=== PATIENT | male | born 1955 | race Caucasian/White ===

== ENCOUNTER 2024-06-17 07:41 | Inpatient (IN) ==
--- NOTE | 2024-03-31 12:29 | PAT Medication Instructions ---
Medication Instructions Date of Service March 31, 2024 Home Medications aspirin 81 mg capsule 81 mg PO QAM atenolol 100 mg tablet 100 mg PO QAM atorvastatin 20 mg tablet 20 mg PO QAM diltiazem HCl 180 mg capsule,extended release 24 hr 180 mg PO QAM fexofenadine 180 mg tablet 180 mg PO QAM lisinopril 20 mg-hydrochlorothiazide 12.5 mg tablet 2 tab PO QAM magnesium oxide 400 mg PO DAILY One-A-Day Men's 50 Plus 1 tab PO QAM ASK your prescriber and surgeon aspirin 81 mg capsule 81 mg PO QAM DO NOT take the morning of surgery fexofenadine 180 mg tablet 180 mg PO QAM lisinopril 20 mg-hydrochlorothiazide 12.5 mg tablet 2 tab PO QAM magnesium oxide 400 mg PO DAILY One-A-Day Men's 50 Plus 1 tab PO QAM Take morning of surgery With a small sip of water, OTHERWISE NOTHING TO EAT OR DRINK AFTER MIDNIGHT: atenolol 100 mg tablet 100 mg PO QAM atorvastatin 20 mg tablet 20 mg PO QAM diltiazem HCl 180 mg capsule,extended release 24 hr 180 mg PO QAM Other Notes If you have any questions please call us at [phone] or [phone] or [phone] or [phone]
--- NOTE | 2024-04-09 11:03 | Anesthesiology Consultation ---
Date of Service April 09, 2024 Assessment & Plan (1) Encounter for pre-operative examination: Chart Review Chart Review: Acceptable Risk for Surgery (pending updated preop ECHO and surgeon ordered PCP clearance ) and Patient seen in Pre Admission Testing - Awaiting PCP phone note response from 04/09/24 regarding scheduling preop ECHO for new onset murmur - Awaiting PCP clearance 04/28/24 ([facility]- Dr. Younger) Per PAT appt on 04/09/24, no recent illness/disease exposures, illness related symptoms, or recent illness/disease positive tests. Will leave to surgeon's discretion if preop Covid testing needed Teaching & Discussion Pre-Anesthesia Teaching/Discussion Notes: Instructed NPO after midnight before surgery,except medications with 15 cc of water. Medication instructions provided according to the PAT guidelines. History Surgery Operation Date: 05/08/24 07:45 Proposed Procedures p L3-L5 Decompression and Fusion, Spinal Cord Monitoring - Jaylan Campos, Height/Weight Height: 6 ft 3 in Weight: 114 kg Allergies Allergy/AdvReac Type Severity Reaction Status Date / Time No Known Allergies Allergy Verified 03/30/24 08:27 Medications Home Medications Medication Instructions Recorded Confirmed Last Taken aspirin 81 mg capsule 81 mg PO QAM 03/30/24 03/30/24 Unknown atenolol 100 mg tablet 100 mg PO QAM 03/30/24 03/30/24 Unknown atorvastatin 20 mg tablet 20 mg PO QAM 03/30/24 03/30/24 Unknown diltiazem HCl 180 mg 180 mg PO QAM 03/30/24 03/30/24 Unknown capsule,extended release 24 hr fexofenadine 180 mg tablet 180 mg PO QA 03/30/24 03/30/24 Unknown lisinopril 20 2 tab PO QAM 03/30/24 03/30/24 Unknown mg-hydrochlorothiazide 12.5 mg tablet magnesium oxide 400 mg PO DAILY 03/30/24 03/30/24 Unknown multivitamin with minerals-folic 1 tab PO QAM 03/30/24 03/30/24 Unknown acid 400 mcg-lycopene 370 mcg tablet (One-A-Day Men's 50 Plus) Past Medical History Medical History (Updated 04/09/24 @ 11:13 by Mily Camacho PA-C) GERD (gastroesophageal reflux disease) well controlled and stable Herniated lumbar intervertebral disc HLD (hyperlipidemia) Hypertension Post-nasal drip chronic Seasonal allergies daily allergy med Exercise / Class Metabolic Activity II 4-5 Yardwork/Stairs/Walk up hill (one flight of stairs - no chest pain or SOB ) Past Surgical History Surgical History History of foot surgery Left foot surgery for plantar fasciitis History of open reduction and internal fixation (ORIF) procedure (2004) right leg with removal of hardware Hx of bilateral cataract extraction Hx of colonoscopy Hx of tonsillectomy S/P epidural steroid injection x7 in past Past Anesthesia History No Hx of Anesthesia Complications and No Family Hx of Anesthesia Complications History of PONV No Hx of PONV and No Hx of Motion Sickness Social History Smoking Status: Former smoker Do You Dip or Chew Tobacco: No Smoking End Date: 1979 Hx Alcohol Use: Yes Alcohol type: beer alcohol intake frequency: a few times a week Hx Substance Use: No substance use type: does not use Review of Systems - Sleeps alone- snoring hx unknown Patient denies chest pain, shortness of breath, dyspnea on exertion, cough, wheezing, palpitations. No hx of seizures, stroke, OR. No hx of blood clots or blood transfusions Physical Exam Vital Signs VITALS BP 116/76 P 65 TEMP 98.0 SP02 98% RESP 16 Constitutional no acute distress ENMT Mouth: no TMJ clicking Thyromental Distance: > or= 3.5 Finger Breadths (4.0) Mallampati Class: III Missing molars Neck + facial hair (advised to shave/trim); neck extension not limited Respiratory normal respiratory effort; no respiratory distress Auscultation: lungs clear to auscultation bilaterally; no wheezes Cardiovascular Rate/Rhythm: regular rate and regular rhythm Heart Sounds: + murmur (II-III/ murmur) Vessels: no carotid bruit New onset murmur- discussed with Dr. Rodríguez- recommend preop ECHO prior to surgery Musculoskeletal Spine: no pain with cervical ROM Extremities: extremities normal to inspection Psychiatric Orientation: alert Lab Results Anesthesia Preop Results Results Anesthesia Widget: WBC 8.63 K/ul (4.8-10.8) 04/09/24 Hgb 13.6 g/dl (14.0-18.0) L 04/09/24 Hct 39.4 % (42.0-52.0) L 04/09/24 Plt 187 K/uL (130-400) 04/09/24 Na 137 mmol/L (136-145) 04/09/24 K 3.6 mmol/L (3.5-5.1) 04/09/24 Cl 102 mmol/L (98-107) 04/09/24 CO2 30 mmol/L (21-32) 04/09/24 BUN 18 mg/dl (6-23) 04/09/24 Creat 0.89 mg/dl (0.6-1.4) 04/09/24 Glucose Level 62 mg/dl (70-99(Fasting)) L 04/09/24 PT 10.3 Seconds (9.0-12.0) 04/09/24 PTT 28 Seconds (21-31) 04/09/24 INR 0.9 (0.9-1.1) 04/09/24 Urine Color Yellow 04/09/24 Urine Appearance Clear (Clear) 04/09/24 Urine pH 5.5 (4.5-7.5) 04/09/24 Urine Specific [place] 1.012 (1.000-1.030) 04/09/24 Urine Protein Negative (Negative) 04/09/24 Urine Glucose (UA) Negative (Negative) 04/09/24 Urine Ketones Negative (Negative) 04/09/24 Urine Blood Negative (Negative) 04/09/24 Urine Nitrite Negative (Negative) 04/09/24 Urine Bilirubin Negative (Negative) 04/09/24 Urine Urobilinogen Negative (Negative) 04/09/24 Urine Leukocyte Esterase Negative (Negative) 04/09/24 Blood Type O Positive 04/09/24 Antibody Screen NEGATIVE 04/09/24 Testing Electrocardiogram Date: 04/09/24 SR with 1st degree AVB at 63bpm Otherwise normal EKG per cardio Chest X-Ray Date: 04/09/24 Findings: + NAD
[2024-06-17 08:12] LABS: Basophils # (auto) 0.06 K/uL (0.00-0.20); Basophils % (auto) 0.5 %; Eosinophils # (auto) 0.13 K/uL (0.00-0.50); Eosinophils % (auto) 1.1 %; Hematocrit (blood only) 42.2 % (42.0-52.0); Hemoglobin 14.8 g/dl (14.0-18.0); Immature Granulocytes # (auto) 0.03 K/uL (0.01-0.20); Immature Granulocytes % (auto) 0.2 %; Lymphocytes # (auto) 2.01 K/uL (1.20-3.40); Lymphocytes % (auto) 16.7 %; Mean Corpuscular Hemoglobin 31.4 pg (25.0-34.0); Mean Corpuscular Hgb Conc 35.1 g/dL (32.0-36.0); Mean Corpuscular Volume 89.6 fL (80.0-100.0); Mean Platelet Volume 9.4 fL (9.4-12.4); Monocytes % (auto) 7.5 %; Neutrophils # (auto) 8.89 K/uL (1.40-6.50); Platelet Count 192 K/uL (130-400); RDW Coefficient of Variation 12.5 % (11.5-14.5); RDW Standard Deviation 41.4 fL (36.4-46.3); Red Blood Count 4.71 M/uL (4.70-6.10); White Blood Count 12.02 K/ul (4.8-10.8)
[2024-06-17] MEDS: LR 15ML/HR IV SCH (08:30)
[2024-06-17] MEDS: LR 60ML/HR IV SCH (08:30)
[2024-06-17] MEDS: CeleBREX 200 MG CAP PO SCH (08:31)
[2024-06-17] MEDS: ACETAMINOPHEN 500 MG TAB PO SCH (08:31)
[2024-06-17] MEDS: GABAPENTIN 300 MG CAP PO SCH (08:31)
--- NOTE | 2024-06-17 08:58 | History & Physical Bridge Note ---
Date of Service June 17, 2024 History & Physical Bridge Note I have examined the patient, reviewed the History & Physical and in the interval since the performance of the History & Physical I have noted the following changes of clinical significance: no changes noted
--- NOTE | 2024-06-17 08:59 | History & Physical Report ---
Date of Service June 17, 2024 Assessment & Plan (1) Multilevel lumbosacral spondylosis with radiculopathy: Plan: L3-L5 decompression and fusion History of Present Illness Chief Complaint: Back and leg pain Primary Care Provider: Dayna Martinez DPM This is a 68-year-old male presents with chronic persistent back and leg pain after failing course of nonoperative care is here for surgical invention. Allergies Allergy/AdvReac Type Severity Reaction Status Date / Time No Known Allergies Allergy Verified 06/17/24 08:11 Home Medications Medication Instructions Recorded Confirmed Type aspirin 81 mg capsule 81 mg PO QA 03/30/24 06/17/24 History atenolol 100 mg tablet 100 mg PO QAM 03/30/24 06/17/24 History atorvastatin 20 mg tablet 20 mg PO QA 03/30/24 06/17/24 History diltiazem HCl 180 mg 180 mg PO QAM 03/30/24 06/17/24 History capsule,extended release 24 hr fexofenadine 180 mg tablet 180 mg PO QA 03/30/24 06/17/24 History lisinopril 20 2 tab PO QAM 03/30/24 06/17/24 History mg-hydrochlorothiazide 12.5 mg tablet multivitamin with minerals-folic 1 tab PO QAM 03/30/24 06/17/24 History acid 400 mcg-lycopene 370 mcg tablet (One-A-Day Men's 50 Plus) hydroxyzine HCl 25 mg tablet 25 mg PO TID PRN Anxiety 05/21/24 06/17/24 History Past Med/Surg History Problem List (Updated 06/17/24 @ 08:58 by Jaylan Campos DO) Multilevel lumbosacral spondylosis with radiculopathy Medical History (Updated 06/17/24 @ 08:58 by Jaylan Campos DO) Ascending aorta dilatation 4.2cm per 05/2024 chest CTA COPD (chronic obstructive pulmonary disease) Per records Aortic stenosis Moderate per 04/2024 ECHO Bicuspid aortic valve GERD (gastroesophageal reflux disease) well controlled and stable Post-nasal drip chronic Seasonal allergies daily allergy med Herniated lumbar intervertebral disc HLD (hyperlipidemia) Hypertension Surgical History History of foot surgery Left foot surgery for plantar fasciitis S/P epidural steroid injection x7 in past Hx of tonsillectomy Hx of colonoscopy Hx of bilateral cataract extraction History of open reduction and internal fixation (ORIF) procedure (2004) right leg with removal of hardware Social History Smoking Status: Former smoker Smoking End Date: 40 years ago; Second Hand Exposure: No; Do You Dip or Chew Tobacco: No; Tobacco Cessation Education Requested by Patient: No Hx Alcohol Use: Yes Alcohol type: beer Hx Substance Use: No Preferred Language: Yakut Communication Ability: Effective Nutrition Consultant Required: No Beliefs That Will Affect Care: None Current Living Situation: Spouse Other Information That Helps Us Care for You: No Feels Safe at Home: Yes Safety Concerns: Feels Safe At This Time Assistive Devices: None Physical Exam Physical Exam: Patient is alert and oriented Heart regular rhythm Lungs clear Results & Data Results & Data Vital Signs (Past 12 Hours) Vital Signs Temp Pulse Resp BP Pulse Ox O2 Del Method 06/17/24 08:14 36.8 C 70 20 124/94 98 Room Air
[2024-06-17] MEDS ORDERED: LIDOCAINE 2% 2 ML VIAL/AMP(20MG/ML) INFIL ONE (09:09)
[2024-06-17] MEDS ORDERED: ONDANSETRON INJ 2 MG/ML 2 ML VIAL ONE (09:09)
[2024-06-17] MEDS ORDERED: MIDAZOLAM HCL 1 MG/ML 2ML VIAL ONE (09:09)
[2024-06-17] MEDS ORDERED: PROPOFOL IV EMULSION 10 MG/ML 20 ML VIAL IV ONE (09:09)
[2024-06-17] MEDS ORDERED: DEXAMETHASONE SOD INJ 4 MG/ML VIAL ONE (09:09)
[2024-06-17] MEDS ORDERED: ROCURONIUM BROMIDE 10 MG/ML 5 ML VIAL IV ONE ×2 (09:09→09:47)
[2024-06-17] MEDS ORDERED: fentaNYL citrate PF 100 MCG/2 ML VIAL ONE ×2 (09:09→11:45)
[2024-06-17] MEDS ORDERED: PROMETHAZINE HCL 6.25 MG in SODIUM CHLORIDE 0.9% 50 ML IV PRN (09:24)
[2024-06-17] MEDS ORDERED: ONDANSETRON INJ 2 MG/ML 2 ML VIAL IV PRN ×2 (09:24→13:33)
[2024-06-17] MEDS ORDERED: ATROPINE SULFATE 0.1 MG/ML 10ML SYR IV PRN (09:24)
[2024-06-17] MEDS ORDERED: LABETALOL HCL IV 5 MG/ML 20ML IV PRN (09:24)
[2024-06-17] MEDS: ceFAZolin 2000MG 2,000 MG/15 ML SYR IV SCH ×2 (09:30→18:15)
[2024-06-17] MEDS ORDERED: ETOMIDATE 2 MG/ML 20 ML VIAL IV ONE (09:34)
[2024-06-17] MEDS: ceFAZolin 330 MG/ML 1 GM VIAL ONE (10:20)
[2024-06-17] MEDS: BUPIVACAINE/EPINEPHRINE 0.25% 1:200,000 30 ML VIAL ONE (10:20)
[2024-06-17] MEDS ORDERED: PHENYLEPHRINE 100MCG/ML 5ML SYR ONE (10:31)
[2024-06-17] MEDS ORDERED: ePHEDrine sulfate 50 MG/5 ML SYR ONE (11:22)
[2024-06-17] MEDS ORDERED: SUGAMMADEX SODIUM 200 MG/2 ML VIAL IV ONE (11:38)
[2024-06-17] MEDS: FLOSEAL HEMOSTATIC MATRIX 10ML TOP ONE (11:39)
--- NOTE | 2024-06-17 11:50 | Operative Report ---
Post Operative Report Pre & Post Diagnosis Operation Date: 06/17/24 09:05 Pre-Op Diagnosis: #1 lumbar spondylosis with radiculopathy #2 lumbar spinal stenosis Post-Op Diagnosis: same I identified the patient and participated in the time-out.: Yes Procedure Operation Date: 06/17/24 09:05 Actual Procedures #1 lumbar decompression with bilateral medial facetectomies and foraminotomies L2-L3, L3-L4 and L4-5. #2 posterior spinal fusion L3-L5. #3 placement posterior instrumentation L3-L5 using camber. #4 interbody fusion L3-L4 L4-5 by #5 placement Spira 15 x 26 mm x 2 at L3-L4 and 14 x 26 mm x 2 at L4-L5. #6 placement locally harvested morselized graft posterior gutters. #7 placement fuse collagen sponge combined with Koros in the posterior lateral gutters and os design bone graft and interbody space. #8 application of versa wrap of the exposed dura. Surgeon Jaylan Campos, DO Bus Monitor Sydney Mendez Estimated Blood Loss 800 Findings See Below Patient is 6 foot 2 weighing over 110 kg with a BMI in excess of 31. Patient's body habitus did contribute to significant technical difficulty with positioning exposure and the procedure itself. This at least 50% postoperative time. Specimens None Indications This is a 68-year-old male presents above-mentioned diagnosis of failed course of nonoperative care is here for surgical invention. Description of Procedure Patient was met with identified informed consent team. Patient was then taken to the operative suite underwent the patient placed in a prone position on the Matthew table on top of the Florentino frame. All bony prominences well-padded eyes inspected to ensure no external pressure placed upon them. This point the lumbar spine was prepped and draped in a sterile fashion. Sharp dissection with the assistance of Bovie cautery was performed down to and exposing the lamina and transverse processes of L3-L4-L5 bilaterally. From caudal to cephalad fashion complete laminectomy of L4 was performed including bilateral male facetectomies and foraminotomies addressing severe neural compression. Then proceeded to perform a complete laminectomy of L3 with bilateral medial facetectomies and foraminotomies again addressing severe subarticular and foraminal compression. Lastly partial laminectomy L2 with bilateral medial facetectomies to address all subarticular compression. Pedicle screws were then placed at L3 L4-5 bilaterally with assistance of fluoroscopy and appropriate size marina placed. By way of transforaminal approach on the right a discectomy of L4-5 was performed. Endplates with then curetted subcortical bleeding bone and a 14 x 26 mm spiral cage filled with os design bone graft tapped position. Then proceeded to the left transforaminal region at L4-5. Again discectomy performed. Endplates guided to subcortical bleeding bone and a second 14 x 26 mm Spira cage filled with os design bone graft tapped position. Then proceeded L3-L4 bilateral transforaminal protocol left discectomy was performed. Endplates guided to subcortical being bone and a 15 x 26 mm spiral cage filled with os design bone graft tapped in position. Then proceeded to the right transforaminal region at L4-5. Again discectomy performed. Endplates guided to subcortical bleeding bone and a second 15 x 26 mm spiral cage filled with os design bone graft apposition. Rods were then compressed locked in final position bilaterally. The transverse processes of L3 L4-5 burred to subcortical bleeding bone. Infuse collagen sponge combined with Koros and local autograft placed in posterior gutters. Versa wrap placed over the exposed dura. 15 round SERGIO drain inserted. The incision was then closed with 1 Vicryl the fascia 2-0 Vicryl subcutaneously and 4 Monocryl for final skin closure. Steri-Strips and sterile dressing placed. Patient waken taken to PACU stable condition. Please note spinal cord monitoring was utilized at the procedure no changes noted. Sydney Mendez was present at the entire surgery and while the patient positioning complex portion of the surgery and final skin closure. I attest to the content of the Intraoperative Record and any orders documented therein. Any exceptions are noted below.
--- NOTE | 2024-06-17 12:00 | Fluoroscopy Report ---
FL lumbar spine 2-3V CLINICAL HISTORY: LE-L5 DECOMPRESSION AND FUSION COMPARISON STUDY: None pertinent FLUOROSCOPY TIME: 17.9 seconds FLUOROSCOPY IMAGES: 2 EXPOSURE DOSE: 15.61 mGy FINDINGS: Fluoroscopic guidance provided for lumbar fusion IMPRESSION: Please refer to the procedure report for analysis real-time fluoroscopic observation ACT 112: Negative or not required by law. Electronically signed by: Nu Calvillo M.D. 06/17/2024 11:59 AM
[2024-06-17] MEDS: HYDROmorphone INJ 1 MG/ML SYRINGE IV PRN ×2 (12:26→13:40)
[2024-06-17] MEDS ORDERED: HYDROmorphone INJ 0.5 MG/0.5 ML SYR IV PRN (13:33)
[2024-06-17] MEDS ORDERED: LORazepam 0.5 MG TAB PO PRN (13:33)
[2024-06-17] MEDS ORDERED: diphenhydrAMINE Capsule 25 MG CAP PO PRN (13:33)
[2024-06-17] MEDS ORDERED: LORazepam 2 MG/1 ML VIAL IV PRN (13:33)
[2024-06-17] MEDS ORDERED: MAGNESIUM HYDROXIDE SUSP 30 ML UDC PO PRN (13:33)
[2024-06-17] MEDS ORDERED: traMADol HCL 50 MG TABLET PO PRN (13:33)
[2024-06-17] MEDS ORDERED: SOD PHOSPHATE/SOD BIPHOSPHATE ENEMA 132 ML BTL PR PRN (13:33)
[2024-06-17] MEDS ORDERED: DO NOT ADMINISTER FLU VACCINE PRN (13:33)
[2024-06-17] MEDS ORDERED: ACETAMINOPHEN 1,000 MG/100 ML VIAL IV PRN (13:33)
[2024-06-17] MEDS ORDERED: FAMOTIDINE 20 MG TAB PO PRN (13:33)
[2024-06-17] MEDS ORDERED: ONDANSETRON 4 MG OD TAB PO PRN (13:33)
[2024-06-17] MEDS ORDERED: hydrOXYzine HCl 25 MG TAB PO PRN ×2 (13:33)
[2024-06-17] MEDS ORDERED: METOCLOPRAMIDE HCL INJ 5 MG/ML 2 ML VIAL IV PRN (13:33)
[2024-06-17] MEDS ORDERED: NALOXONE HCL 0.4 MG/1 ML VIAL/CARP IV PRN (13:33)
[2024-06-17] MEDS ORDERED: bisacodyL 10 MG SUPP PR PRN (13:33)
[2024-06-17] MEDS ORDERED: PROMETHAZINE 12.5 MG/50.5 ML BAG IV PRN (13:33)
[2024-06-17] MEDS ORDERED: DO NOT ADMINISTER PNEUMOCOCCAL VACCINE PRN (13:33)
[2024-06-17] MEDS: HYDROmorphone INJ 1 MG/ML SYRINGE ONE (13:42)
--- NOTE | 2024-06-17 14:32 | Anesthesiology Progress Note ---
Date of Service June 17, 2024 Anesthesia Post Procedure Vital Signs Vital Signs: Temp Pulse Pulse Resp BP Pulse Ox O2 Del Method 06/17/24 14:13 36.5 C 67 16 116/76 97 Room Air 06/17/24 14:00 61 20 119/78 94 Room Air 06/17/24 13:45 60 15 120/63 93 Room Air 06/17/24 13:30 61 15 117/76 96 Room Air 06/17/24 13:15 61 15 129/82 100 Nasal Cannula 06/17/24 13:05 57 L 17 128/79 100 Nasal Cannula 06/17/24 12:55 36.4 C L 61 17 112/92 96 Nasal Cannula 06/17/24 12:45 59 L 12 129/74 96 Nasal Cannula 06/17/24 12:35 61 13 126/81 94 Nasal Cannula 06/17/24 12:25 64 12 116/75 96 Oxymask 06/17/24 12:15 68 12 134/75 99 Oxymask 06/17/24 12:07 36.2 C L 70 16 125/78 95 Oxymask 06/17/24 08:14 36.8 C 70 20 124/94 98 Room Air O2 Flow Rate 06/17/24 14:13 06/17/24 14:00 06/17/24 13:45 06/17/24 13:30 06/17/24 13:15 2 06/17/24 13:05 2 06/17/24 12:55 2 06/17/24 12:45 2 06/17/24 12:35 2 06/17/24 12:25 2 06/17/24 12:15 9 06/17/24 12:07 9 06/17/24 08:14 Pain Intensity Right Leg: Pain Intensity: 5 Back: Pain Intensity: 3 Transfer of Care Handoff Completed per policy Notes Mental Status: alert / awake / arousable Patient Amnestic to Procedure: Yes Nausea / Vomiting: adequately controlled Pain: adequately controlled Airway Patency, RR, SpO2: stable & adequate BP & HR: stable & adequate Hydration State: stable & adequate Anesthetic Complications: no major complications apparent
--- NOTE | 2024-06-17 14:54 | Consultation ---
Date of Consultation June 17, 2024 Assessment & Plan (1) S/P spinal surgery: (2) Multilevel lumbosacral spondylosis with radiculopathy: Post op day# 0 S/P L3-L5 decompression and fusion by Dr Beth BREEN#[phone] Pain management per ortho Wound management per ortho PT/OT as appropriate DVT prophylaxis per ortho Incentive spirometry Monitor H&H for acute blood loss anemia; pre-op Hgb: 14 (3) Hypertension: Continue atenolol, diltiazem Hold lisinopril, HCTZ and reassess tomorrow (4) HLD (hyperlipidemia): Continue home atorvastatin (5) COPD (chronic obstructive pulmonary disease): No signs exacerbation Levalbuterol as needed (6) GERD (gastroesophageal reflux disease): Continue PPI (7) Bicuspid aortic valve: (8) Aortic stenosis: (9) Ascending aorta dilatation: Per outpatient review: 04/23/2024 Echo: EF: 60-64%. LV wall thickness is mildly increased. Aortic valve is possibly bicuspid with partial fusion of the right and non coronary aortic valve cusp. The aortic valve is moderately calcified. Moderate aortic valve stenosis is present. Trace aortic regurgitation is present. The aortic root is borderline enlarged, 3.9 cm. The ascending aorta is moderately enlarged, 4.5 cm. 05/19/24 CTA Chest: Bicuspid aortic valve with moderate annular calcification.Ectasia of ascending aorta measuring up to 4.2 cm. [place] [facility] [place] Prophylaxis SCDs Disposition per primary service Follows with Dr Younger for routine care Pt was seen and care coordinated with Dr Fisher. See addendum Thank you for this consultation. We will follow the patient with you during their hospital stay. You can reach a [facility] via [facility] Supervising Physician Co-Signing Physician Notes Pt was seen and examined by myself, Kya Fisher MD on the day of service. Care was coordinated with Raya Ching PA-C. 68yoM seen post op laying in bed, nursing at bedside. Denied acute concerns Pain controlled Follow H/H Monitor BP- resume/add home meds as able Otherwise as above. I spent a total [id number] coordinating, documenting, and providing care for this patient excluding time spent in the performance of separately billed services History of Present Illness Requesting Physician: Dr Campos Reason for Consultation: Post op medical management Attending Physician: Jaylan Campos, DO History of Present Illness Patient is 68-year-old male with PMH HTN, HLD, COPD, GERD, moderate aortic stenosis, aortic root enlargement seen in medical consultation s/p decompression and fusion L3-L5 today by Dr. Campos. Post op patient reports is doing well and pain currently controlled. Sipping on water and eating crackers without difficulty. Has Chappell catheter in place. Last BM this morning. Reports chronic loose stools at baseline. Is requesting stool softeners as in past had constipation with narcotic pain meds. Denies fever/chills, diaphoresis, N/V, ANDRADE, dizziness, CP, SOB, rhinorrhea, abdominal pain, paresthesias, extremity weakness, extremity edema, rashes, urinary symptoms. Allergies Allergy/AdvReac Type Severity Reaction Status Date / Time No Known Allergies Allergy Verified 06/17/24 08:11 Home Medications Medication Instructions Recorded Confirmed Type aspirin 81 mg capsule 81 mg PO [facility] 03/30/24 06/17/24 History atenolol 100 mg tablet 100 mg PO [facility] 03/30/24 06/17/24 History atorvastatin 20 mg tablet 20 mg PO [facility] 03/30/24 06/17/24 History diltiazem HCl 180 mg 180 mg PO [facility] 03/30/24 06/17/24 History capsule,extended release 24 hr fexofenadine 180 mg tablet 180 mg PO [facility] 03/30/24 06/17/24 History lisinopril 20 2 tab PO [facility] 03/30/24 06/17/24 History mg-hydrochlorothiazide 12.5 mg tablet multivitamin with minerals-folic 1 tab PO [facility] 03/30/24 06/17/24 History acid 400 mcg-lycopene 370 mcg tablet (One-A-Day Men's 50 Plus) hydroxyzine HCl 25 mg tablet 25 mg PO TID PRN Anxiety 05/21/24 06/17/24 History omeprazole 40 mg capsule,delayed 40 mg PO DAILY 06/17/24 06/17/24 History release oxycodone 5 mg tablet 5 mg PO Q6H PRN pain #30 tabs 06/17/24 06/17/24 Rx tramadol 50 mg tablet 50 mg PO Q6H PRN pain, moderate 04/02/25 04/02/25 Rx #30 tabs Patient History Medical History Ascending aorta dilatation 4.2cm per 05/2024 chest CTA COPD (chronic obstructive pulmonary disease) Per records Aortic stenosis Moderate per 04/2024 ECHO Bicuspid aortic valve GERD (gastroesophageal reflux disease) well controlled and stable Post-nasal drip chronic Seasonal allergies daily allergy med Herniated lumbar intervertebral disc HLD (hyperlipidemia) Hypertension Surgical History History of foot surgery Left foot surgery for plantar fasciitis S/P epidural steroid injection x7 in past Hx of tonsillectomy Hx of colonoscopy Hx of bilateral cataract extraction History of open reduction and internal fixation (ORIF) procedure (2004) right leg with removal of hardware Social History Smoking Status: Former smoker Smoking End Date: 40 years ago; Second Hand Exposure: No; Do You Dip or Chew Tobacco: No; Tobacco Cessation Education Requested by Patient: No Hx Alcohol Use: Yes Alcohol type: beer Hx Substance Use: No Preferred Language: Haitian Communication Ability: Effective Job Putter Up And Ticket Preparer Required: No Beliefs That Will Affect Care: None Current Living Situation: Spouse Other Information That Helps Us Care for You: No Feels Safe at Home: Yes Safety Concerns: Feels Safe At This Time Assistive Devices: None Review of Systems Review of Systems: All systems reviewed & are unremarkable except as noted in HPI & below Physical Exam Physical Exam: General: no distress, WDWN Head: normocephalic, atraumatic Eyes: conjunctiva non-injected, anicteric ENT: normal inspection external ears, nose, mucous membranes moist Neck: supple, trachea midline, non-tender Lungs: clear, no respiratory distress, no wheezing/rhonchi/rales CV: RRR, + murmur, no pretibial edema Abd: normal BS, soft, non-tender Back: surgical dressing in place, +SERGIO drain with serosanguineous drainage Ext: no cyanosis, no calf tenderness, bilateral pedal pushes and pulls intact, sensation to light touch intact bilateral feet Neuro: A&O x 3, no focal deficits noted, normal affect Skin: warm, dry Results & Data Vital Signs (Past 12 Hours) Vital Signs Temp Pulse Pulse Resp BP Pulse Ox O2 Del Method 06/17/24 14:46 36.5 C 72 16 124/84 97 Room Air 06/17/24 14:13 36.5 C 67 16 116/76 97 Room Air 06/17/24 14:00 61 20 119/78 94 Room Air 06/17/24 13:45 60 15 120/63 93 Room Air 06/17/24 13:30 61 15 117/76 96 Room Air 06/17/24 13:15 61 15 129/82 100 Nasal Cannula 06/17/24 13:05 57 L 17 128/79 100 Nasal Cannula 06/17/24 12:55 36.4 C L 61 17 112/92 96 Nasal Cannula 06/17/24 12:45 59 L 12 129/74 96 Nasal Cannula 06/17/24 12:35 61 13 126/81 94 Nasal Cannula 06/17/24 12:25 64 12 116/75 96 Oxymask 06/17/24 12:15 68 12 134/75 99 Oxymask 06/17/24 12:07 36.2 C L 70 16 125/78 95 Oxymask 06/17/24 08:14 36.8 C 70 20 124/94 98 Room Air O2 Flow Rate 06/17/24 14:46 06/17/24 14:13 06/17/24 14:00 06/17/24 13:45 06/17/24 13:30 06/17/24 13:15 2 06/17/24 13:05 2 06/17/24 12:55 2 06/17/24 12:45 2 06/17/24 12:35 2 06/17/24 12:25 2 06/17/24 12:15 9 06/17/24 12:07 9 06/17/24 08:14 Laboratory Results Short CBC 06/17/24 Range/Units 07:55 WBC 12.02 H (4.8-10.8) K/ul Hgb 14.8 (14.0-18.0) g/dl Hct 42.2 (42.0-52.0) % Plt Count 192 (130-400) K/uL Diagnostic Findings Lumbar Spine X-Ray 06/17/24 09:05 FL lumbar spine 2-3V CLINICAL HISTORY: LE-L5 DECOMPRESSION AND FUSION COMPARISON STUDY: None pertinent FLUOROSCOPY TIME: 17.9 seconds FLUOROSCOPY IMAGES: 2 EXPOSURE DOSE: 15.61 mGy FINDINGS: Fluoroscopic guidance provided for lumbar fusion IMPRESSION: Please refer to the procedure report for analysis real-time fluoroscopic observation ACT 112: Negative or not required by law. Electronically signed by: Nu Calvillo M.D. 06/17/2024 11:59 AM
--- OUTSIDE RECORDS SUMMARY | 2024-06-17 15:02 | External Medical Summary | Summary of Care ---
Author Name Unknown Organization [facility] Address [address] [place] [address] Phone [phone] Care Team Providers Care Polytechnic Registrar Name Role Phone Dheeraj Younger DO Primary Care Provider [phone] Reason for Visit * Reason Comments Follow Up Encounter Details Date Type Department Care Team (Latest Contact Info) Description 06/15/2024 7:00 AM EDT Office Visit [facility] [address] [place] [address] Dheeraj Younger DO [address] [id number] HTN, goal below 140/90*; Mixed dyslipidemia; Gastroesophageal reflux disease, unspecified whether esophagitis present; COPD, group B, by GOLD 2017 classification (HCC); Anxiety; Screening for prostate cancer Allergies Active Allergy Reactions Criticality Noted Date Comments Bee Venom 04/22/2018 documented as of this encounter (statuses as of 06/15/2024) Medications Aspirin 81 MG Tablet 1 Tablet in the morning. Active Fexofenadine HCl 180 MG Oral Tablet Take 1 Tablet by mouth in the morning. Active EPINEPHrine 0.3 MG/0.3ML Injection Solution Auto-injector (Autoinjector) Use as directed. 2 Each 1 1 Active Acetaminophen 500 MG Oral Tablet Take 1 Tablet by mouth every 6 hours as needed. Active Ventolin HFA 108 (90 Base) MCG/ACT Inhalation Aerosol Solution Inhale 2 Puffs by mouth in the morning and 2 Puffs at noon and 2 Puffs in the evening and 2 Puffs before bedtime. 18 g 5 3 Active Atenolol 100 MG Oral Tablet (Tenormin)Indica tions:HTN, goal below 140/90 Take 1 Tablet by mouth in the morning. In the morning.. 90 Tablet 3 4 Active Atorvastatin Calcium 20 MG Oral Tablet (Lipitor)Indicat ions:Mixed dyslipidemia Take 1 Tablet by mouth in the morning. 90 Tablet 3 4 Active Lisinopril-hydro CHLOROthiazide 20-12.5 MG Oral TabletIndication s:HTN, goal below 140/90 TAKE 2 TABLETS EVERY MORNING 180 Tablet 3 4 Active Omeprazole 40 MG Oral Capsule Delayed Release (PriLOSEC) TAKE 1 CAPSULE BY MOUTH BEFORE BREAKFAST 90 Capsule 3 4 Active Multi-Vitamins Oral Tablet Take 1 Tablet by mouth in the morning. Active hydrOXYzine HCl 25 MG Oral TabletIndication s:Anxiety Take 1 Tablet by mouth 3 times a day as needed for Anxiety. 40 Tablet 2 5 Active dilTIAZem HCl ER Coated Beads 180 MG Oral Capsule Extended Release 24 Hour (Cardizem CD) TAKE 1 CAPSULE IN THE MORNING 90 Capsule 3 5 Active Baclofen 10 MG Oral Tablet (Lioresal)Indica tions:Muscle spasm of back Take 1 Tablet by mouth in the morning and 1 Tablet before bedtime. 20 Tablet 5 06/16/19 25 Discontin ued(Medic ation List Clean Up) Hospital, Clinic, or Other Facility Administered Medication Ordered Dose Route Frequency Start Date End Date Status albuterol sulfate (PROVENTIL) (2.5 MG/3ML) 0.083% inhalation solution 2.5 mgIndications:Chronic obstructive pulmonary disease, unspecified COPD type (HCC) 2.5 mg NEBULIZER Q4H PRN 01/21/2019 Active documented as of this encounter (statuses as of 06/15/2024) Active Problems Problem Noted Date Diagnosed Date Nonrheumatic aortic valve stenosis 06/15/2024 Bicuspid aortic valve 06/15/2024 Mixed dyslipidemia 12/12/2021 Anxiety 04/05/2021 COPD, group B, by GOLD 2017 classification 05/24 Overview: Per COPD GOLD Classification HTN, goal below 140/90 10/31/2018 Gastroesophageal reflux disease 10/31/2018 Post-nasal drip 02/12/2017 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 Encouraged to take deep breath and use aero chamber. Test performed by Warren CERAMICS TECHNICIAN CPFT documented as of this encounter (statuses as of 06/15/2024) Immunizations Name Administration Dates Next Due Pneumococcal Polysaccharide PPV23 (Pneumovax) 01/01/2019 Seasonal Influenza, High Dos e, Trivalent, PF, IM (Fluzone HD) 12/11/2023 Seasonal Influenza, PF, 6 M & above, IM , (FluLaval or Fluzone) 12/14/2022,12/12/2021,04/05/2021 TDAP (age 10 and older)(Boostrix) 03/05/2015 documented as of this encounter Social History Tobacco Use Types Packs/Day Years Used Date Smoking Tobacco: Former Cigarettes 1.5 30 1 974 - 2004 Passive Smoke Exposure: Past Smokeless Tobacco: Never Tobacco Cessation:Counseling Given: No Alcohol Use Standard Drinks/Week Comments Yes 4 (1 standard drink = 0.6 oz pur e alcohol) Occ AUDIT-C Answer Date Recorded Frequency of Alcohol Consumption 2-3 times a wee k 04/22/2018 Average Number of Drinks 3 or 4 019 Frequency of Binge Drinking Not on file 07/2018 PHQ-2 Answer Date Recorded PHQ Adult Total Score 2 06/15/2024 Hunger Vital Sign Answer Date Recorded Within the past 12 months, y ou worried that your food would run out before you got the money to buy more. Never true 12/11/19 24 Within the past 12 months, t he food you bought just didn't last and you didn't have money to get more. Never true 12/11/2023 Childcare Answer Date Recorded Do you feel overwhelmed with taking care of a child, family member or friend? No 12/11/2023 Does your family need help f inding childcare? (Household - for ages 0-17 years) Not on file 12/11/2023 Clothing Answer Date Recorded Have you been unable to get clothing when it was really needed? No 12/11/2023 Is your family able to get c lothes or diapers when needed? (Household - for ages 0-17 years) Not on file 12/11/2023 Personal Safety Answer Date Recorded Do you feel unsafe or have concerns for your saf ety? No 12/11/2023 Do you have concerns for you r family's safety? (Household - for ages 0-17 years) Not on file 12/11/2023 Utilities Answer Date Recorded Do you have trouble paying y our heating, water, or electric bill? No 12/11/2023 Is your family able to pay t he heat, water, or electric bill? (Household - for ages 0-17 years) Not on file 12/11/2023 Does your family have access to good internet? (Household - for ages 0-17 years) Not on file 12/11/2023 Employment Status Answer Date Recorded Are you unemployed or without regular income? No 12/11/2023 Does the household have a re gular source of income? (Household - for ages 0-17 years) Not on file 12/11/2023 Social Connections Answer Date Recorded How often do you feel lonely or isolated from th ose around you? Never 12/11/2023 Financial Resource Strain Answer Date R ecorded Do you have any trouble payi ng for your medications, or do you think you might in the future? No 12/11/2023 Does your family have troubl e paying for medicine? (Household - for ages 0-17 years) Not on file 12/11/2023 Transportation Needs Answer Date Record ed Do you have trouble getting a ride to medical visits or work? (Adult - for ages 18 years and over) Not on file 12/11/2023 Does your family have a hard time getting a ride to doctors visits? (Household - for ages 0-17 years) Not on file 12/11/2023 Has lack of transportation k ept you from medical appointments, meetings, work, or from getting things needed for daily living? Check all that apply. No 12/11/2023 Do you (or your family) have trouble finding or paying for a ride (transportation)? (Household - for ages 0-17 years) Not on file 12/11/2023 Housing Stability Answer Date Recorded Do you currently live in a s helter or have no steady place to sleep at night? No 12/11/2023 Do you think you are at risk of becoming homeless? (Adult - for ages 18 years and over) Not on file 12/11/2023 Does your family worry about paying for your home or becoming homeless? (Household - for ages 0-17 years) Not on file 0 12/11/2023 Are you homeless or worried that you might be in the future? No 12/11/2023 Are you (or your family) tayo eless or worried that you might be in the future? (Household - for ages 0-17 years) Not on file Food Insecurity Answer Date Recorded Do you need food for this week? No 12/11/2023 Are you able to get enough f ood for your family? (Household - for ages 0-17 years) Not on file 12/11/2023 Does your family need food t his week? (Household - for ages 0-17 years) Not on file 12/11/2023 Do you always have enough fo od for your family? (Household - for ages 0-17 years) Not on file 12/11/2023 Food Insecurity Answer Date Recorded Within the past 12 months, y ou worried that your food would run out before you got the money to buy more. Never true 12/11/19 24 Within the past 12 months, t he food you bought just didn't last and you didn't have money to get more. Never true 12/11/2023 Do you need food for this week? No 12/11/2023 Sex and Gender Information Value Date Recorded Sex Assigned at Male 10/31/2018 8:29 AM EDT Legal Sex Male 5:56 AM EST Gender Identity Male 10/31/2018 8:29 AM EDT Sexual Orientation Straight 10/31/2018 8: 29 AM EDT documented as of this encounter Last Filed Vital Signs Vital Sign Reading Time Taken Comments Blood Pressure 126/85 06/15/2024 6:56 AM EDT Pulse 84 06/15/2024 6:56 AM EDT Temperature 35.8 °C (96.4 °F) 06/15/2024 6:56 AM ED T Respiratory Rate 16 06/15/2024 6:56 AM EDT Oxygen Saturation 97% 06/15/2024 6:56 AM EDT Inhaled Oxygen Concentration - - Weight 111.6 kg (246 lb) 06/15/2024 6:56 AM EDT Height 190.5 cm (6' 3") 06/15/2024 6:56 AM EDT Body Mass Index 30.75 06/15/2024 6:56 AM EDT documented in this encounter Progress Notes * Dheeraj Younger, DO - 06/15/2024 7:33 AM EDT Subjective: Yanick Ybarra is a 68 year old male. Chief Complaint Patient presents with Follow Up HPI: Patient presents today for 6 month follow up. Overall doing well; nervous about upcoming back surgery. No other new complaints. Had labs and reviewed- overall stable. Results for orders placed or performed in visit on 06/09/24 LIPID PANEL WITH DIRECT LDL IF TG IS HIGH Result Value Ref Range Triglycerides 166 <=174 mg/dL Cholesterol 136 <200 mg/dL HDL Cholesterol 48 >39 mg/dL Non-HDL Cholesterol 88 <=159 mg/dL COMPREHENSIVE METABOLIC PANEL Result Value Ref Range BUN 14 6 - 20 mg/dL CREATININE 0.9 0.6 - 1.2 mg/dL EGFR >90 >=60 mL/min SODIUM 143 135 - 146 mmol/L POTASSIUM 3.4 (L) 3.5 - 5.1 mmol/L CHLORIDE 102 98 - 107 mmol/L CO2 26 22 - 32 mmol/L ANION GAP 15 7 - 15 mmol/L GLUCOSE 83 70 - 120 mg/dL Albumin 4.4 3.8 - 5.0 g/dL AST 23 10 - 50 U/L Alkaline Phosphatase 96 35 - 130 U/L Bilirubin, Total 0.6 <=1.2 mg/dL CALCIUM 9.5 8.4 - 10.2 mg/dL Protein 6.7 6.0 - 8.3 g/dL ALT 25 10 - 50 U/L ALBUMIN / CREATININE RATIO, URINE Result Value Ref Range Albumin, Random Urine <1.20 mg/dL Creatinine, Random Urine 164 mg/dL Albumin / Creatinine Ratio, Urine <7 <30 mg/g Creat LDL CHOLESTEROL (DIRECT MEASURE) Result Value Ref Range LDL Cholesterol (Direct Measure) 48 <=129 mg/dL PHM: Patient Active Problem List Diagnosis Post-nasal drip Carotidynia HTN, goal below 140/90 Gastroesophageal reflux disease COPD, group B, by GOLD 2017 classification (HCC) Anxiety Mixed dyslipidemia Current Outpatient Medications Medication Sig Dispense Refill Fexofenadine HCl 180 MG Oral Tablet Take 1 Tablet by mouth in the morning. Ventolin HFA 108 (90 Base) MCG/ACT Inhalation Aerosol Solution Inhale 2 Puffs by mouth in the morning and 2 Puffs at noon and 2 Puffs in the evening and 2 Puffs before bedtime. 18 g 5 Atorvastatin Calcium 20 MG Oral Tablet (Lipitor) Take 1 Tablet by mouth in the morning. 90 Tablet 3 Lisinopril-hydroCHLOROthiazide 20-12.5 MG Oral Tablet TAKE 2 TABLETS EVERY MORNING 180 Tablet 3 Omeprazole 40 MG Oral Capsule Delayed Release (PriLOSEC) TAKE 1 CAPSULE BY MOUTH BEFORE BREAKFAST 90 Capsule 3 Multi-Vitamins Oral Tablet Take 1 Tablet by mouth in the morning. hydrOXYzine HCl 25 MG Oral Tablet Take 1 Tablet by mouth 3 times a day as needed for Anxiety. 40 Tablet 2 dilTIAZem HCl ER Coated Beads 180 MG Oral Capsule Extended Release 24 Hour (Cardizem CD) TAKE 1 CAPSULE IN THE MORNING 90 Capsule 3 Aspirin 81 MG Tablet 1 Tablet in the morning. EPINEPHrine 0.3 MG/0.3ML Injection Solution Auto-injector (Autoinjector) Use as directed. 2 Each 1 Acetaminophen 500 MG Oral Tablet Take 1 Tablet by mouth every 6 hours as needed. Atenolol 100 MG Oral Tablet (Tenormin) Take 1 Tablet by mouth in the morning. In the morning.. 90 Tablet 3 Current Facility-Administered Medications Medication Dose Route Frequency Provider Last Rate Last Admin albuterol sulfate (PROVENTIL) (2.5 MG/3ML) 0.083% inhalation solution 2.5 mg 2.5 mg Nebulizer Q4H PRN Jovita Puentes PA-C 2.5 mg at 03/02/19 0925 Past Medical History: Diagnosis Date Anal fissure Anxiety Arthritis Chronic obstructive pulmonary disease (HCC) 10/31/2018 Gastroesophageal reflux disease 10/31/2018 HLD (hyperlipidemia) HTN, goal below 140/90 10/31/2018 Lumbar radiculopathy Lumbar stenosis Pseudophakia [facility] [place] Past Surgical History: Procedure Laterality Date EGD, FLEXIBLE, DIAGNOSTIC N/A 09/06/2021 hiatal hernia/widely patent and non-obstructing schatzki ring/gastritis/biopsies show Asencio's esophagitis/recall 1 year/ESOPHAGOGASTRODUODENOSCOPY (EGD), FLEXIBLE, TRANSORAL, DIAGNOSTIC performed by Kd Thacker MD at ENDOSCOPY [facility] INCISION OF ANAL SPHINCTER N/A 04/08/2023 SPHINCTEROTOMY performed by Jaylan Melendez MD at OR [facility] INFORMATION Colonoscopy. INFORMATION Leg fx repair x 2. INJECT DX/THER SUBSTANCE INTERLAMINAR LUMBAR/SACRAL W IMAGE GUIDE N/A 03/09/2022 INJECTION SPINE LUMBAR OR SACRAL performed by Wilber Garcia MD at OR [facility] L-/S-SPINE PARAVERTEBRAL FACET INJ,1 LEVEL Right 05/23/2022 L-/S-SPINE PARAVERTEBRAL FACET INJ, 1 LEVEL (INTRAARTICULAR) performed by Wilber Garcia MDat OR [facility] L-/S-SPINE PARAVERTEBRL FACET INJ,2 LEVELS Right 05/23/2022 L-/S-SPINE PARAVERTEBRAL FACET INJ, 2 LEVELS (INTRAARTICULAR) performed by Wilber Garcia MD at OR [facility] L-/S-SPINE PARAVERTEBRL FACET INJ,3 LEVELS Right 05/23/2022 L-/S-SPINE PARAVERTEBRAL FACET INJ, 3 OR MORE LEVELS (INTRAARTICULAR) performed by Wilber Garcia MD at OR [facility] LASERING OF SECONDARY CATARACT 01/05/2019 Yag cap OS LUMBAR / SACRAL EPIDURAL, SINGLE LEVEL Right 08/08/2022 INJECTION TRANSFORAMINAL EPIDURAL LUMBAR OR SACRAL performed by Wilber Garcia MD at OR [facility] LUMBAR / SACRAL EPIDURAL, SINGLE LEVEL Right 05/14/2023 INJECTION TRANSFORAMINAL EPIDURAL LUMBAR OR SACRAL performed by Wilber Garcia MD at OR [facility] LUMBAR / SACRAL EPIDURAL, SINGLE LEVEL Right 10/17/2023 INJECTION TRANSFORAMINAL EPIDURAL LUMBAR OR SACRAL performed by Candelario Castro DO at OR [facility] REMOVE CATARACT, INSERT LENS PROSTH [facility] [place] SACROILIAC JOINT INJECT W/GUIDANCE Bilateral 12/20/2023 INJECTION SACROILIAC JOINT performed by Candelario Castro DO at OR [facility] No family history on file. Review of patient's allergies indicates: Allergen Reactions Bee Venom Extensive ROS Constitutional (f/c/wt/vision/hearing): Negative Resp (cough/sob/morales): Negative CV (cp/palp/fluttering/diaphoresis/morales/pnd): See by cardiology for aortic stenosis. Shows to have bicuspid valve- monitoring with Cardiology. GI (n/v/d/hrtburn): Negative Endo (hair/cold or heat intol/ 3 p's): Negative Neuro (shaking/weak/fatigu/parasthesi/): Negative Skin (rash/easy bruis/xerosis): Negative Psy (si/hi/halluc/): see above hpi (nocturia/hesit/drib/sexual review): Negative Objective: BP 126/85 | Pulse 84 | Temp 96.4 °F (35.8 °C) | Resp 16 | Ht 6' 3" (1.905 m) | Wt 246 lb (111.6 kg) | SpO2 97% | BMI 30.75 kg/m² | BSA 2.43 m² Physical Exam: General: alert, healthy, no distress Head: Normocephalic, No masses, lesions, tenderness or abnormalities Ears: External ears normal, Canals clear, TM's Normal Oropharynx: no exudate, no erythema and lips, buccal mucosa, and tongue normal Neck: supple, no adenopathy, no bruits, thyroid normal size, non-tender, without nodularity Heart: regular rate & rhythm, DOREEN best heard at RUSB. Lungs: clear to auscultation Abdomen: abdomen soft, nontender, normal bowel sounds and no masses or organomegaly Extremities: no edema, no clubbing or cyanosis Neuro Exam: alert & oriented x 3 with fluent speech, no focal motor/sensory deficits, gait normal, reflexes normal and symmetric, Skin: skin color, texture, turgor are normal, no rashes or significant lesions ASSESSMENT: ICD-10-CM 1. HTN, goal below 140/90 I10 2. Mixed dyslipidemia E78.2 3. Gastroesophageal reflux disease, unspecified whether esophagitis present K21.9 4. COPD, group B, by GOLD 2017 classification ([facility]) J44.9 5. Anxiety F41.9 6. Screening for prostate cancer Z12.5 PLAN: (I10) HTN, goal below 140/90 (primary encounter diagnosis) Plan: Stable, continue to monitor. (E78.2) Mixed dyslipidemia Plan: COMPREHENSIVE METABOLIC PANEL, LIPID PANEL WITH DIRECT LDL IF TG IS HIGH Stable, continue to monitor. (K21.9) Gastroesophageal reflux disease, unspecified whether esophagitis present Plan: Stable, continue to monitor. (J44.9) COPD, group B, by GOLD 2017 classification ([facility]) Plan: Stable, continue to monitor. (F41.9) Anxiety Plan: Likely exacerbated by upcoming surgery. Continue to monitor, but if not improving post surgery consider additional medication or changes to treatment. (Z12.5) Screening for prostate cancer Plan: PSA As above. Follow Up: Return in about 6 months (around 12/15/2024), or if symptoms worsen or fail to improve. Return to the office as ordered. Return sooner if having any other problems or concerns. Dheeraj Younger DO documented in this encounter Nursing Notes * Malka Mederos LPN - 06/15/2024 6:56 AM EDT Chief Complaint Patient presents with Follow Up documented in this encounter Plan of Treatment Upcoming Encounters Date Type Department Care Team (Late st Contact Info) Description 11/09/2024 9:00 AM EDT Office Visit Cardiology, [place] [address] [phone] Liana Ramos PA-C [address] [address] 12/18/2024 8:00 AM EDT Office Visit [facility] [address] [place] [place] [address] Dheeraj Younger, DO [address] [phone] Scheduled Orders Name Type Priority Associated Diagnoses Orde r Schedule COMPREHENSIVE METABOLIC PANEL Lab Routine Mixed dyslipidemia 6 Occurrences starting 06/15/2024 until 07/15/2025 LIPID PANEL WITH DIRECT LDL IF TG IS HIGH Lab Routine Mixed dyslipidemia 6 Occurrences starting 06/15/2024 until 07/15/2025 PSA Lab Routine Screening for prostate cancer Expected: 12/15/2024 (Approximate), Expires: 07/15/2025 Health Maintenance Due Date Last Done Comments Alpha-1 Antitrypsin 01/01/1976 Hepatitis C Screening 01/01/1976 Cologuard 2002 Fecal Occult Blood Test 2002 Sigmoidoscopy 2002 Zoster Vaccines (1 of 2) 01/01/2008 Pneumococcal Vaccine: 50+ Years (2 of 2 - PCV) 01/02/2020 01/01/2019 AAA Screening 2022 07/24/2016 COVID-19 Vaccine (1 - season) 2023 Adult Wellness Visit 01/01/2024 DTap/Tdap Vaccines (2 - Td or Tdap) 03/05/2025 03/05/2015 GFR 06/09/2025 06/09/2024, 03/19, 12/06/2023, Additional history exists Depression Screening 06/15/2025 06/15/2024, 05/18/2024, 05/18/2024, Additional history exists O2 ASSESSMENT COMPLETED IN PAST YEAR FOR COPD 06/15/2025 06/15/2024 Colonoscopy 07/30/2026 07/30/2016 Colorectal Cancer Screening 07/30/2026 Albumin/Creatinine Ratio 06/10/2027 025, 12/18/2022, 01/01/2019 Diabetes Screening 06/10/2027 06/09/2024, 0 04/09/2024, 12/06/2023, Additional history exists Lipid Panel 06/09/2029 06/09/2024, 11/17, 06/11/2022, Additional history exists Influenza Vaccine (FLU shot) Completed , 12/14/2022, 12/12/2021, Additional history exists HPV (Gardasil) Vaccine Aged Out No lo nger eligible based on patient's age to complete this topic Hepatitis B Vaccine Aged Out No longe r eligible based on patient's age to complete this topic MENINGOCOCCAL (MENACTRA/MENVEO) Aged Out No longer eligible based on patient's age to complete this topic Meningitis B Vaccine (Bexsero/Trumemba) Aged Out No longer eligible based on patient's age to complete this topic documented as of this encounter Medical Devices Not on filedocumented as of this encounter Visit Diagnoses Diagnosis HTN, goal below 140/90- Primary Unspecified essential hypertension Mixed dyslipidemia Mixed hyperlipidemia Gastroesophageal reflux disease, unspecified whether esophagitis present COPD, group B, by GOLD 2017 classification (HCC) Anxiety Anxiety state, unspecified Screening for prostate cancer Special screening for malignant neoplasm of prostate documented in this encounter Advance Directives * Full Code (Latest Code Status on File) Date Activated Date Inactivated Comments 04/08/2023 11:45 AM 04/08/2023 8:39 PM Question Answer Comments Discussion of Advance Direct dolores occurred with: Not Discussed due to patient's condition Care Teams Polytechnic Registrar Relationship Specialty Start Date End Date Dheeraj Younger DO [address] [address] PCP - General Family Medicine 04/11/18 documented as of this encounter
--- OUTSIDE RECORDS SUMMARY | 2024-06-17 15:02 | External Medical Summary | Summary of Care ---
Author Name Unknown Organization [facility] Address [address] [place] [address] Phone [phone] Care Team Providers Care Shredded Filler Cigar Maker Machine Name Role Phone Dheeraj Younegr DO Primary Care Provider [phone] Reason for Visit * Reason Comments Follow Up Encounter Details Date Type Department Care Team (Latest Contact Info) Description 06/15/2024 7:00 AM EDT Office Visit [facility] [address] [address] Dheeraj Younger DO [address] [id number] HTN, goal below 140/90*; Mixed dyslipidemia; Gastroesophageal [...] use aero chamber. Test performed by Warren TELETYPE OR VARITYPE KEYBOARD OPERATOR CPFT documented as of this encounter (statuses [...] by Jaylan Melendez MD at OR [facility] INFORMATION Colonoscopy. INFORMATION Leg fx repair x 2. INJECT DX/THER SUBSTANCE INTERLAMINAR LUMBAR/SACRAL W IMAGE GUIDE N/A 03/09/2022 INJECTION SPINE LUMBAR OR SACRAL performed by Wilber Garcia MD at OR [facility] L-/S-SPINE PARAVERTEBRAL FACET INJ,1 LEVEL Right 05/23/2022 L-/S-SPINE PARAVERTEBRAL FACET INJ, 1 LEVEL (INTRAARTICULAR) performed by Wilber Garcia MDat OR [facility] L-/S-SPINE PARAVERTEBRL FACET INJ,2 LEVELS Right 05/23/2022 L-/S-SPINE PARAVERTEBRAL FACET INJ, 2 LEVELS (INTRAARTICULAR) performed by Wilber Garcia MD at OR [facility] L-/S-SPINE PARAVERTEBRL FACET INJ,3 LEVELS Right 05/23/2022 L-/S-SPINE PARAVERTEBRAL FACET INJ, 3 OR MORE LEVELS (INTRAARTICULAR) performed by Wilber Garcia MD at OR [facility] LASERING OF SECONDARY CATARACT 01/05/2019 Yag cap OS LUMBAR / SACRAL EPIDURAL, SINGLE LEVEL Right 08/08/2022 INJECTION TRANSFORAMINAL EPIDURAL LUMBAR OR SACRAL performed by Wilber Garcia MD at OR [facility] LUMBAR / SACRAL EPIDURAL, SINGLE LEVEL Right 05/14/2023 INJECTION TRANSFORAMINAL EPIDURAL LUMBAR OR SACRAL performed by Wilber Garcia MD at OR [facility] LUMBAR / SACRAL EPIDURAL, SINGLE LEVEL Right [...] COPD, group B, by GOLD 2017 classification ([facility]) J44.9 5. Anxiety F41.9 6. Screening for [...] COPD, group B, by GOLD 2017 classification ([facility]) Plan: Stable, continue to monitor. (F41.9) Anxiety [...] 11/09/2024 9:00 AM EDT Office Visit Cardiology, [place] [address] [address] Liana Ramos PA-C [address] [address] 12/18/2024 8:00 AM EDT Office Visit [facility] [address] [address] Dheeraj Younger, DO [address] [address] Scheduled Orders Name Type Priority Associated Diagnoses [...] Discussed due to patient's condition Care Teams Shredded Filler Cigar Maker Machine Relationship Specialty Start Date End Date Dheeraj Younger DO [address] [address] PCP - General Family Medicine 04/11/18 documented as of this encounter
--- OUTSIDE RECORDS SUMMARY | 2024-06-17 15:03 | External Medical Summary ---
Author Name Unknown Address Unknown Organization K01:[place] [place] [address] [place] [address] Laboratory Report Ordering Provider Test Date Status JOSEF IRWIN 06/09/2024 07:47:33 Final Observation Date Value Abnormality Reference (Units ) Status Triglyceride 06/09/2024 07:47:33 166 <=174 ( mg/dL) Final Triglyceride Reference Range s (mg/dL):
<150 Acceptable
150-174 Borderline high
175-499 High
>=500 Very high Cholesterol 06/09/2024 07:47:33 136 <200 (mg /dL) Final Total Cholesterol Reference Ranges (mg/dL):
<200 Desirable
200-239 Borderline high
>=240 High HDL 06/09/2024 07:47:33 48 >39 (mg/dL ) Final HDL Cholesterol Reference Ra nges (mg/dL):
>=60 High (Desirable)
<50 Low (Undesirable) For Females
<40 Low (Undesirable) For Males NON-HDL CHOLESTEROL 06/09/2024 07:47:33 88 <=159 (mg/dL) Final Non-HDL Cholesterol Referenc e Range (mg/dL):
<100 Target level for high risk ASCVD patient
<130 Optimal for general population
130-159 Near optimal for general population
160-189 Borderline High
190-219 High
>=220 Very High Performing Location LAB[facility]AT[facility] - [address] [place] [address]
--- OUTSIDE RECORDS SUMMARY | 2024-06-17 15:03 | External Medical Summary | Summary of Care ---
Author Name Unknown Organization [facility] Address [address] [place] [address] Phone [phone] Care Team Providers Care Nursing Department Chairperson Name Role Phone Dheeraj Younger DO Primary Care Provider [phone] Reason for Referral * Precert (Within 10 days (routine)) - Pending Review Specialty Diagnoses / Procedures Referred By Contangela t Referred To Contact Radiology Diagnoses Ascending aorta dilation (HCC) Procedures CTA CHEST NON-CORONARY W CONTRAST Liana Ramos PA-C [address] [place] [address] [place] [address] Phone: tel: fax: Referral ID Status Reason Start Date Expiration Date V isits Requested Visits Authorized [id number] Pending Review 05/08/2024 999 [id number] Reason for Visit * Reason Comments NEW PATIENT * Evaluate & Treat - Unlimited Visits (Within 10 days (routine)) - Authorized Specialty Diagnoses / Procedures Referred By Contact Referred To Contact Cardiovascular Medicine / Cardiology Diagnoses Murmur, cardiac Jack Manriquez CRNP [address] [place] [address] Phone: tel: fax: Referral ID Status Reason Start Date Expiration Date Visits Requested Visits Authorized [id number] Authorized Specialty Services Required 04/20/2024 [id number] Encounter Details Date Type Department Care Team (Late st Contact Info) Description 05/08/2024 11:30 AM EST Office Visit Cardiology, [place] [address] [place] [address] Liana Ramos PA-C [address] [place] [id number] Bicuspid aortic valve*; Moderate aortic stenosis; Ascending aorta dilation (HCC); Aortic root dilation (HCC); HTN, goal below 130/80; Hyperlipidemia LDL goal <70; Preoperative cardiovascular examination Allergies Active Allergy Reactions Criticality Noted Date Comments Bee Venom 04/22/2018 documented as of this encounter (statuses as of 05/08/2024) Medications Aspirin 81 MG Tablet 1 Tablet [...] before bedtime. 18 g 5 3 Active Ibuprofen 200 MG Oral Tablet (Motrin) Take 1 Tablet by mouth every 4 hours as needed. Active dilTIAZem HCl ER Coated Beads 180 MG Oral Capsule Extended Release 24 Hour (Cardizem CD) Take 1 Capsule by mouth in the morning. 90 Capsule 3 4 Active Atenolol 100 MG Oral Tablet (Tenormin)Indicat ions:HTN, goal below 140/90 Take 1 Tablet by mouth in the morning. In the morning.. 90 Tablet 3 4 Active Atorvastatin Calcium 20 MG Oral Tablet (Lipitor)Indicati ons:Mixed dyslipidemia Take 1 Tablet by mouth in the morning. 90 Tablet 3 4 Active Lisinopril-hydroC HLOROthiazide 20-12.5 MG Oral TabletIndications :HTN, goal below 140/90 TAKE 2 TABLETS EVERY MORNING 180 Tablet 3 4 Active Omeprazole 40 MG Oral Capsule Delayed Release (PriLOSEC) TAKE 1 CAPSULE BY MOUTH BEFORE BREAKFAST 90 Capsule 3 4 Active Multi-Vitamins Oral Tablet Take 1 Tablet by mouth in the morning. Active Hospital, Clinic, or Other Facility Administered Medication Ordered Dose Route Frequency Start Date End Date Status albuterol sulfate (PROVENTIL) (2.5 MG/3ML) 0.083% inhalation solution 2.5 mgIndications:Chronic obstructive pulmonary disease, unspecified COPD type (HCC) 2.5 mg NEBULIZER Q4H PRN 01/21/2019 Active documented as of this encounter (statuses as of 05/08/2024) Active Problems Problem Noted Date Diagnosed Date Mixed dyslipidemia 12/12/2021 Anxiety 04/05/2021 COPD, group B, by GOLD 2017 classification 05/24 Overview: Per COPD GOLD Classification HTN, goal below 140/90 10/31/2018 Gastroesophageal reflux disease 10/31/2018 Post-nasal drip 02/12/2017 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 Encouraged to take deep breath and use aero chamber. Test performed by [facility] [employer] documented as of this encounter (statuses as of 05/08/2024) Immunizations Name Administration Dates Next Due Pneumococcal [...] Past Smokeless Tobacco: Never Tobacco Cessation:Counseling Given: Not Answered Alcohol Use Standard Drinks/Week Comments Yes 4 (1 standard drink = 0.6 oz pur e alcohol) Occ AUDIT-C Answer Date Recorded Frequency of Alcohol Consumption 2-3 times a wee k 04/22/2018 Average Number of Drinks 3 or 4 019 Frequency of Binge Drinking Not on file 07/2018 PHQ-2 Answer Date Recorded PHQ Adult Total Score 0 12/11/2023 Hunger Vital Sign Answer Date Recorded Within [...] Sign Reading Time Taken Comments Blood Pressure 122/82 05/08/2024 11:17 AM EST Pulse 64 05/08/2024 11:17 AM EST Temperature - - Respiratory Rate - - Oxygen Saturation - - Inhaled Oxygen Concentration - - Weight 116.6 kg (257 lb) 05/08/2024 11:17 AM EST Height 190.5 cm (6' 3") 05/08/2024 11:17 AM EST Body Mass Index 32.12 05/08/2024 11:17 AM EST documented in this encounter Progress Notes * Liana Ramos PA-C - 05/08/2024 11:24 AM EST [facility] [place] [place] [facility] New Cardiology Patient 05/08/2024 CC: cardiac murmur History of Present Illness: Yanick Ybarra is a 68 year old year old male who presents for evaluation of cardiac murmur. Murmur was auscultated by anesthesiology during preoperative evaluation for back surgery by Dr Campos at [facility] scheduled 06/17/2024. Patient will have multilevel lumbar fusion under general anesthesia. Can easily climb 2 flights of stairs without cardiovascular concerns. Remain active. He has no complaints today. Denies chest pain, shortness of breath, palpitations. Denies tobacco, alcohol, and illicit drug use. Denies any known complications with anesthesia. Denies abnormal bleeding. Cannot do any heavy lifting due to his back States he is compliant with all medications and endorses no side effects today. REVIEW OF SYSTEMS: See HPI for pertinent positives. All others negative other than those noted in the HPI. CONSTITUTIONAL: No change in weight, No weakness, No fatigue and No fevers, No sweats or chills. PULMONARY: No cough, sputum, or hemoptysis, No wheezing, No shortness or breath and No recent change in breathing. CARDIOVASCULAR: No chest pain, No dyspnea on exertion, No edema, No palpitations and No syncope. GASTROINTESTINAL: No abdominal pain, No change in bowel habits, No significant heartburn, No nausea, No vomiting, No diarrhea, No constipation, No blood in stools or black tarry stools. No dysphagia. HEMATOLOGIC: No abnormal bleeding and No bruising. NEUROLOGICAL: Normal balance, No headaches and No weakness. Past Medical History: Patient Active Problem List Diagnosis Post-nasal drip Carotidynia HTN, goal below 140/90 Gastroesophageal reflux disease COPD, group B, by GOLD 2017 classification (HCC) Anxiety Mixed dyslipidemia Past Surgical History: Procedure Laterality Date EGD, FLEXIBLE, DIAGNOSTIC N/A 09/06/2021 hiatal hernia/widely patent and non-obstructing schatzki ring/gastritis/biopsies show Asencio's esophagitis/recall 1 year/ESOPHAGOGASTRODUODENOSCOPY (EGD), FLEXIBLE, TRANSORAL, DIAGNOSTIC performed by Kd Thacker MD at ENDOSCOPY [facility] INCISION OF ANAL SPHINCTER N/A 04/08/2023 SPHINCTEROTOMY performed by Jaylan Melendez MD at OR [facility] INFORMATION Colonoscopy. INFORMATION Leg fx repair x 2. INJECT DX/THER SUBSTANCE INTERLAMINAR LUMBAR/SACRAL W IMAGE GUIDE N/A 03/09/2022 INJECTION SPINE LUMBAR OR SACRAL performed by Wilber Garcia MD at OR [facility] L-/S-SPINE PARAVERTEBRAL FACET INJ,1 LEVEL Right 05/23/2022 L-/S-SPINE PARAVERTEBRAL FACET INJ, 1 LEVEL (INTRAARTICULAR) performed by Lissy Helm OR [facility] L-/S-SPINE PARAVERTEBRL FACET INJ,2 LEVELS Right 05/23/2022 L-/S-SPINE PARAVERTEBRAL FACET INJ, 2 LEVELS (INTRAARTICULAR) performed by Wilber Garcia MD at OR [facility] L-/S-SPINE PARAVERTEBRL FACET INJ,3 LEVELS Right 05/23/2022 L-/S-SPINE PARAVERTEBRAL FACET INJ, 3 OR MORE LEVELS (INTRAARTICULAR) performed by Wilber Garcia MD at OR [facility] LASERING OF SECONDARY CATARACT 01/05/2019 Yag cap OS LUMBAR / SACRAL EPIDURAL, SINGLE LEVEL Right 08/08/2022 INJECTION TRANSFORAMINAL EPIDURAL LUMBAR OR SACRAL performed by Wilber Garcia MD at OR [facility] LUMBAR / SACRAL EPIDURAL, SINGLE LEVEL Right 05/14/2023 INJECTION TRANSFORAMINAL EPIDURAL LUMBAR OR SACRAL performed by Wilber Garcia MD at OR [facility] LUMBAR / SACRAL EPIDURAL, SINGLE LEVEL Right 10/17/2023 INJECTION TRANSFORAMINAL EPIDURAL LUMBAR OR SACRAL performed by Candelario Castro DO at OR [facility] REMOVE CATARACT, INSERT LENS PROSTH OU Stanley SACROILIAC JOINT INJECT W/GUIDANCE Bilateral 12/20/2023 INJECTION SACROILIAC JOINT performed by Candelario Castro DO at OR [facility] Family History: No family history on file. Social History: Social History Socioeconomic History Marital status: Spouse name: Not on file Number of children: Not on file Years of education: Not on file Highest education level: Not on file Occupational History Not on file Tobacco Use Smoking status: Former Current packs/day: 0.00 Average packs/day: 1.5 packs/day for 30.0 years (45.0 ttl pk-yrs) Types: Cigarettes Start date: 1973 Quit date: 2003 Years since quittin.1 Passive exposure: Past Smokeless tobacco: Never Vaping Use Vaping status: Never Used Substance and Sexual Activity Alcohol use: Yes Alcohol/week: 4.0 - 6.0 standard drinks of alcohol Types: 4 - 6 12 oz of beer per week Comment: Occ Drug use: No Sexual activity: Not on file Other Topics Concern Not on file Social History Narrative Not on file Social Needs Financial Resource Strain: Low Risk (12/11/2023) Financial Resource Strain Do you have any trouble paying for your medications, or do you think you might in the future? (Adult - for ages 18 years and over): No Does your family have trouble paying for medicine? (Household - for ages 0-17 years): Not on file Food Insecurity: No Food Insecurity (12/11/2023) Food Insecurity Worried About Running Out of Food in the Last Year: Never true Ran Out of Food in the Last Year: Never true Do you need food for this week? (Adult - for ages 18 years and over): No Transportation Needs: No Transportation Needs (12/11/2023) Transportation Needs Do you have trouble getting a ride to medical visits or work? (Adult - for ages 18 years and over):Not on file Does your family have a hard time getting a ride to doctors’ visits? (Household - for ages 0-17 years): Not on file Has lack of transportation kept you from medical appointments, meetings, work, or from getting things needed for daily living? Check all that apply. (Adult - for ages 18 years and over): No Do you (or your family) have trouble finding or paying for a ride (transportation)? (Household - for ages 0-17 years): Not on file Social Connections: Socially Integrated (12/11/2023) Social Connections How often do you feel lonely or isolated from those around you? (Adult - for ages 18 years and over): Never Housing Stability: Low Risk (12/11/2023) Housing Stability Do you currently live in a alf or have no steady place to sleep at night? (Adult - for ages 18 years and over): No Do you think you are at risk of becoming homeless? (Adult - for ages 18 years and over): Not on file Does your family worry about paying for your home or becoming homeless? (Household - for ages 0-17 years): Not on file Are you homeless or worried that you might be in the future? (Adult - for ages 18 years and over): No Are you (or your family) homeless or worried that you might be in the future? (Household - for ages0-17 years): Not on file Allergies: Bee venom Medications: Current Outpatient Medications Medication Sig Dispense Refill Aspirin 81 MG Tablet 1 Tablet in the morning. Fexofenadine HCl 180 MG Oral Tablet Take 1 Tablet by mouth in the morning. dilTIAZem HCl ER Coated Beads 180 MG Oral Capsule Extended Release 24 Hour (Cardizem CD) Take 1 Capsule by mouth in the morning. 90 Capsule 3 Atenolol 100 MG Oral Tablet (Tenormin) Take 1 Tablet by mouth in the morning. In the morning.. 90 Tablet 3 Atorvastatin Calcium 20 MG Oral Tablet (Lipitor) Take 1 Tablet by mouth in the morning. 90 Tablet 3 Lisinopril-hydroCHLOROthiazide 20-12.5 MG Oral Tablet TAKE 2 TABLETS EVERY MORNING 180 Tablet 3 Omeprazole 40 MG Oral Capsule Delayed Release (PriLOSEC) TAKE 1 CAPSULE BY MOUTH BEFORE BREAKFAST 90 Capsule 3 Multi-Vitamins Oral Tablet Take 1 Tablet by mouth in the morning. EPINEPHrine 0.3 MG/0.3ML Injection Solution Auto-injector (Autoinjector) Use as directed. 2 Each 1 Acetaminophen 500 MG Oral Tablet Take 1 Tablet by mouth every 6 hours as needed. Ventolin HFA 108 (90 Base) MCG/ACT Inhalation Aerosol Solution Inhale 2 Puffs by mouth in the morning and 2 Puffs at noon and 2 Puffs in the evening and 2 Puffs before bedtime. 18 g 5 Ibuprofen 200 MG Oral Tablet (Motrin) Take 1 Tablet by mouth every 4 hours as needed. Current Facility-Administered Medications Medication Dose Route Frequency Provider Last Rate Last Admin albuterol sulfate (PROVENTIL) (2.5 MG/3ML) 0.083% inhalation solution 2.5 mg 2.5 mg Nebulizer Q4H PRN Jovita Puentes PA-C 2.5 mg at 03/02/19 0925 PHYSICAL EXAMINATION: BP 122/82 | Pulse 64 | Ht 1.905 m (6' 3") | Wt 116.6 kg (257 lb) | BMI 32.12 kg/m² | BSA 2.48 m² General: No acute distress. A+Ox3. HEENT: Normocephalic. Atraumatic. PERRL. EOMI. Conjunctiva and sclera clear. NECK: No carotid bruits. No JVD. Carotid upstrokes are brisk. Heart: RRR. S1 and S2 noted. Grade III/IV systolic murmur noted. No rubs or gallops. PMI non displaced. Lungs: Clear to auscultation. No wheezes.No rhonchi. No rales. Abdomen: Normal bowel sounds. Soft. Nontender. No masses or organomegaly. No abdominal bruits. Extremities: No edema. No clubbing or cyanosis. Pulses: radial=2/4, posterior tibial=2/4, dorsalis pedis = 2/4. NEURO: No focal deficits. PSYCH: Appropriate affect and insight. DATA Labs & Imaging Reviewed Below: EKG 04/09/2024 at [facility] SR 1 degree AV block 63bpm ECHO 04/23/2024 The qualitative LV ejection fraction is 60-64% (normal). The LV wall thickness is mildly increased (concentric). The aortic valve is possibly bicuspid with partial fusion of the right and non coronary aortic valve cusp. The aortic valve is moderately calcified. Moderate aortic valve stenosis is present. Trace aortic regurgitation is present. The aortic root is borderline enlarged, 3.9 cm. The ascending aorta is moderately enlarged, 4.5 cm. This study has what is deemed to be a "significant abnormality" consistent with ACT 112. See additional documentation regarding notification of patient and ordering provider. Recommend cardiology consultation . IMPRESSION: 68 year old year old male 1. Bicuspid aortic valve 2. Moderate aortic stenosis 3. Ascending aorta dilation -4.5cm per TTE 04/2024 4. Aortic root dilation -3.6cm per TTE 04/2024 5. HTN 6. COPD 7. GERD 8. Reformed tobacco use 9. Chronic back pain 10. HLD RECOMMENDATIONS/PLAN: 1. Bicuspid aortic valve (Primary) 2. Moderate aortic stenosis -Echocardiogram with newly found bicuspid aortic valve with moderate aortic stenosis -Discussed pathophysiology and treatment of aortic valve disease -Patient remains asymptomatic. -Patient is aware to seek evaluation if he experiences any LE edema, SOB, CP or syncope -Will repeat echocardiogram in 6-8 months to reassess severity. 3. Ascending aorta dilation (HCC) 4. Aortic root dilation (HCC) -Will complete CTA chest for better assessment -Discouraged lifting >30 pounds 5. HTN, goal below 130/80 -Well controlled -Continue lisinopril-HCTZ 40-25mg daily -Continue atenolol 100mg daily -Continue diltiazem 180mg daily 6. Hyperlipidemia LDL goal <70 -LDL well controlled, 73 on 11/2023 -Continue atorvastatin 20mg daily 7. Preoperative cardiovascular examination -In terms of preop risk assessment, per Ralph Criteria, patient was counseled that he would be placedat a moderate risk for any adverse perioperative cardiovascular events associated with lumbar fusion surgery. Patient is on a good medication regimen and no other cardiac testing or interventions would further lower that risk. Patient states he understands and is accepting of that risk and wishes to proceed with surgery. -May hold ASA 81mg daily 5-7 days prior to procedure per surgeons direction Disposition: F/u 6 months The patient agrees to the above plan and will call with additional questions or concerns. All questions were answered to the patients satisfaction. ER with all emergencies advised. Liana Ramos PA-C Cardiology, [address] [place] [address] I spent a total of 62 minutes on the date of service in preparation, delivery, and documentation ofthe care provided to Yanick Ybarra excluding any time spent in the performance of separately billed services. This chart was completed in part utilizing [employer] Speech Voice Recognition Software. Grammatical errors, random word insertions, prounoun errors, and incomplete sentences are an occasional consequence of this system due to software limitations, ambient noise, and hardware issues. Any formal questions or concerns about the content, text, or information contained within the body of this dictation should be directly addressed to the provider for clarification. documented in this encounter Nursing Notes * Kenneth Kiran CMA - 05/08/2024 11:16 AM EST Patient was identified by name and date of . Name: Yanick Ybarra Date of : (1955). Examination Room: 4 Reason for Visit: Chief Complaint Patient presents with NEW PATIENT Interim Hospitalization(s): NO Interim Emergency room visit(s): NO Current symptoms: None Medications reviewed and are up to date via: Patient's memory Would you like to sign up for [facility]? ALREADY ACTIVE Patient was instructed to not get up on the exam table/exam chair until directed and assisted by their provider; patient is to remain seated in the chair/ wheelchair/ exam table/ exam chair for fall prevention and safety reasons. Patient is aware to have assistance to step down off exam table/exam chair with personnel. Patient voiced full comprehension of instructions. Kenneth Kiran CMA 11:16 AM 05/08/2024 documented in this encounter Plan of Treatment Upcoming Encounters Date Type Department Care Team (Late st Contact Info) Description 05/18/2024 9:00 AM EST Office Visit [facility] [address] [place] [address] Jack Manriquez CRNP [address] [place] [address] 05/19/2024 9:00 AM EST Appointment Radiology, [facility] [address] [facility] [place] [id number] 06/09/2024 7:40 AM EDT Laboratory Laboratory, [place] [address] [place] [address] [place], Lab [address] [place] [id number] 06/15/2024 7:00 AM EDT Office Visit [facility] [address] [place] [id number] Dheeraj Younger, [address] [place] [id number] 11/09/2024 9:00 AM EDT [facility] [place] [address] [facility] [address] Liana Ramos PA-C [address] [facility] [place] [address] Scheduled Orders Name Type Priority Associated Diagnoses Orde r Schedule CTA CHEST NON-CORONARY W CONTRAST Medical Imaging Routine Ascending aorta dilation (HCC) Expected: 05/08/2024, Expires: 06/05/2025 Health Maintenance Due Date Last Done Comments Alpha-1 Antitrypsin 01/01/1976 Hepatitis C Screening 01/01/1976 Cologuard 2002 Fecal Occult Blood Test 2002 Sigmoidoscopy 2002 Zoster Vaccines (1 of 2) 01/01/2008 Pneumococcal Vaccine: 50+ Years (2 of 2 - PCV) 01/02/2020 01/01/2019 AAA Screening 2022 07/24/2016 COVID-19 Vaccine (1 - season) 2023 Adult Wellness Visit 01/01/2024 Depression Screening 12/10/2024 12/11/2023 DTap/Tdap Vaccines (2 - Td or Tdap) 03/05/2025 03/05/2015 GFR 04/09/2025 04/09/2024, 11/17, 01/14/2023, Additional history exists O2 ASSESSMENT COMPLETED IN PAST YEAR FOR COPD 04/20/2025 04/20/2024 Albumin/Creatinine Ratio 12/18/2025 12/18/2022, 12/16 Colonoscopy 07/30/2026 07/30/2016 Colorectal Cancer Screening 07/30/2026 Diabetes Screening 04/09/2027 04/09/2024, 0 12/06/2023, 01/14/2023, Additional history exists Lipid Panel 12/05/2028 12/06/2023, 05/17, 06/27/2021, Additional history exists Influenza Vaccine (FLU shot) [...] as of this encounter Visit Diagnoses Diagnosis Bicuspid aortic valve- Primary Congenital insufficiency of aortic valve Moderate aortic stenosis Aortic valve disorders Ascending aorta dilation (HCC) Thoracic aortic ectasia Aortic root dilation (HCC) Thoracic aortic ectasia HTN, goal below 130/80 Unspecified essential hypertension Hyperlipidemia LDL goal <70 Other and unspecified hyperlipidemia Preoperative cardiovascular examination Pre-operative cardiovascular examination documented in this encounter Advance Directives * Full Code (Latest Code Status on File) Date Activated Date Inactivated Comments 04/08/2023 11:45 AM 04/08/2023 8:39 PM Question Answer Comments Discussion of Advance Direct dolores occurred with: Not Discussed due to patient's condition Care Teams Nursing Department Chairperson Relationship Specialty Start Date End Date Dheeraj Younger DO [address] [place] [id number] PCP - General Family Medicine 04/11/18 documented as of this encounter
--- OUTSIDE RECORDS SUMMARY | 2024-06-17 15:03 | External Medical Summary ---
Author Name Unknown Address Unknown Organization K01:LAB[facility]ATORY [facility] [place] - [address] [place] [address] Laboratory Report Ordering Provider Test Date Status JOSEF IRWIN 06/09/2024 07:47:33 Final Observation Date Value Abnormality Reference (Units ) Status LDL, (direct) 06/09/2024 07:47:33 48 <=129 (mg/dL) Final LDL Cholesterol Reference Ra nges (mg/dL):
<70 � � Target level for high risk ASCVD patient
<100 � �Optimal for general population
100-129 Near optimal for general population
130-159 Borderline high
160-189 High
>=190 � Very high Performing Location [facility] - [address] [place] [address]
--- OUTSIDE RECORDS SUMMARY | 2024-06-17 15:03 | External Medical Summary | Summary of Care ---
Author Name Unknown Organization [facility] Address [address] [place] [address] Phone [phone] Care Team Providers Care Costume Technician Name Role Phone Dheeraj Younger DO Primary Care Provider [phone] Reason for Visit * Reason Comments Outpatient Testing Encounter Details Date Type Department Care Team (Late st Contact Info) Description 06/09/2024 7:40 AM EDT Laboratory Laboratory, [place] [address] [place] [phone] [place], Lab [address] [place] [address] Mixed dyslipidemia Allergies Active Allergy Reactions Criticality Noted Date Comments Bee Venom 04/22/2018 documented as of this encounter (statuses as of 06/09/2024) Medications Aspirin 81 MG Tablet 1 Tablet [...] 3 Active Atenolol 100 MG Oral Tablet (Tenormin)Indicat [...] Tablet by mouth in the morning. Active Baclofen 10 MG Oral Tablet (Lioresal)Indicat ions:Muscle spasm of back Take 1 Tablet by mouth in the morning and 1 Tablet before bedtime. 20 Tablet 5 Active hydrOXYzine HCl 25 MG Oral TabletIndications :Anxiety Take 1 Tablet by mouth 3 times a day as needed for Anxiety. 40 Tablet 2 5 Active dilTIAZem HCl ER Coated Beads 180 MG Oral Capsule Extended Release 24 Hour (Cardizem CD) TAKE 1 CAPSULE IN THE MORNING 90 Capsule 3 5 Active Hospital, Clinic, or Other Facility Administered Medication Ordered Dose Route Frequency Start Date End Date Status albuterol sulfate (PROVENTIL) (2.5 MG/3ML) 0.083% inhalation solution 2.5 mgIndications:Chronic obstructive pulmonary disease, unspecified COPD type (HCC) 2.5 mg NEBULIZER Q4H PRN 01/21/2019 Active documented as of this encounter (statuses as of 06/09/2024) Active Problems Problem Noted Date Diagnosed Date Mixed dyslipidemia 12/12/2021 Anxiety 04/05/2021 COPD, group B, by GOLD 2017 classification 05/24 Overview: Per COPD GOLD Classification HTN, goal below 140/90 10/31/2018 Gastroesophageal reflux disease 10/31/2018 Post-nasal drip 02/12/2017 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 Encouraged to take deep breath and use aero chamber. Test performed by Warren DINKEY ENGINE FIRER/FIREMAN CPFT documented as of this encounter (statuses as of 06/09/2024) Immunizations Name Administration Dates Next Due Pneumococcal [...] Passive Smoke Exposure: Past Smokeless Tobacco: Never Alcohol Use Standard Drinks/Week Comments Yes 4 (1 standard drink = 0.6 oz pur e alcohol) Occ AUDIT-C Answer Date Recorded Frequency of Alcohol Consumption 2-3 times a wee k 04/22/2018 Average Number of Drinks 3 or 4 019 Frequency of Binge Drinking Not on file 07/2018 PHQ-2 Answer Date Recorded PHQ Adult Total Score 7 05/18/2024 Hunger Vital Sign Answer Date Recorded Within [...] No 12/11/2023 Does the household have [facility]? (Household - for ages [...] AM EDT documented as of this encounter Plan of Treatment Upcoming Encounters Date Type Department Care Team (Late st Contact Info) Description 06/15/2024 7:00 AM EDT Office Visit [facility] [address] [place] [phone] Dheeraj Younger, DO [address] [place] [address] 11/09/2024 9:00 AM EDT Office Visit Cardiology, [place] [address] [place] [address] Liana Ramos PA-C [address] [place] [address] Pending Results Name Type Priority Associated Diagnoses Date /Time LIPID PANEL WITH DIRECT LDL IF TG IS HIGH Lab Routine Mixed dyslipidemia 06/09/2024 7:47 AM EDT COMPREHENSIVE METABOLIC PANEL Lab Routine Mixed dyslipidemia 06/09/2024 7:47 AM EDT Health Maintenance Due Date Last Done Comments Alpha-1 Antitrypsin 01/01/1976 Hepatitis C Screening 01/01/1976 Cologuard 2002 Fecal Occult Blood Test 2002 Sigmoidoscopy 2002 Zoster Vaccines (1 of 2) 01/01/2008 Pneumococcal Vaccine: 50+ Years (2 of 2 - PCV) 01/02/2020 01/01/2019 AAA Screening 2022 07/24/2016 COVID-19 Vaccine ( - season) 2023 Adult Wellness Visit 01/01/2024 DTap/Tdap Vaccines (2 - Td or Tdap) 03/05/2025 03/05/2015 GFR 04/09/2025 04/09/2024, 11/17, 01/14/2023, Additional history exists Depression Screening 05/18/2025 05/18/2024, 05/18/2024, 12/11/2023 O2 ASSESSMENT COMPLETED IN PAST YEAR FOR COPD 05/18/2025 05/18/2024 Albumin/Creatinine Ratio 12/18/2025 12/18/2022, 12/16 Colonoscopy 07/30/2026 [...] as of this encounter Visit Diagnoses Diagnosis Mixed dyslipidemia Mixed hyperlipidemia documented in this encounter Advance Directives * Full Code (Latest Code Status on File) Date Activated Date Inactivated Comments 04/08/2023 11:45 AM 04/08/2023 8:39 PM Question Answer Comments Discussion of Advance Direct dolores occurred with: Not Discussed due to patient's condition Care Teams Costume Technician Relationship Specialty Start Date End Date Dheeraj Younger DO [address] [place] [address] PCP - General Family Medicine 04/11/18 documented as of this encounter
--- OUTSIDE RECORDS SUMMARY | 2024-06-17 15:03 | External Medical Summary | Summary of Care ---
Author Name Unknown Organization [facility] Address [address] [place] [address] Phone [phone] Care Team Providers Care Hand Molder And Caster Name Role Phone Dc Younger DO Primary Care Provider [phone] Reason for Visit * Reason Comments eRx-Medication Refill Encounter Details Date Type Department Care Team (Late st Contact Info) Description 05/23/[address] [facility] [address] [place] [phone] Dc Younger DO [address] [place] [phone] Allergies Active Allergy Reactions Criticality Noted Date Comments Bee Venom 04/22/2018 documented as of this encounter (statuses as of 05/23/2024) Medications Aspirin 81 MG Tablet 1 Tablet in the morning. Active Fexofenadine HCl 180 MG Oral Tablet Take 1 Tablet by mouth in the morning. Active EPINEPHrine 0.3 MG/0.3ML Injection Solution Auto-injector (Autoinjector) Use as directed. 2 Each 1 11/17/19 21 Active Acetaminophen 500 MG Oral Tablet Take 1 Tablet by mouth every 6 hours as needed. Active Ventolin HFA 108 (90 Base) MCG/ACT Inhalation Aerosol Solution Inhale 2 Puffs by mouth in the morning and 2 Puffs at noon and 2 Puffs in the evening and 2 Puffs before bedtime. 18 g 5 01/09/20 23 Active Atenolol 100 MG Oral Tablet (Tenormin)Indica tions:HTN, goal below 140/90 Take 1 Tablet by mouth in the morning. In the morning.. 90 Tablet 3 06/04/19 24 Active Atorvastatin Calcium 20 MG Oral Tablet (Lipitor)Indicat ions:Mixed dyslipidemia Take 1 Tablet by mouth in the morning. 90 Tablet 3 06/04/19 24 Active Lisinopril-hydro CHLOROthiazide 20-12.5 MG Oral TabletIndication s:HTN, goal below 140/90 TAKE 2 TABLETS EVERY MORNING 180 Tablet 3 06/04/19 24 Active Omeprazole 40 MG Oral Capsule Delayed Release (PriLOSEC) TAKE 1 CAPSULE BY MOUTH BEFORE BREAKFAST 90 Capsule 3 06/04/19 24 Active Multi-Vitamins Oral Tablet Take 1 Tablet by mouth in the morning. Active Baclofen 10 MG Oral Tablet (Lioresal)Indica tions:Muscle spasm of back Take 1 Tablet by mouth in the morning and 1 Tablet before bedtime. 20 Tablet 05/19/19 25 Active hydrOXYzine HCl 25 MG Oral TabletIndication s:Anxiety Take 1 Tablet by mouth 3 times a day as needed for Anxiety. 40 Tablet 2 05/19/19 25 Active dilTIAZem HCl ER Coated Beads 180 MG Oral Capsule Extended Release 24 Hour (Cardizem CD) TAKE 1 CAPSULE IN THE MORNING 90 Capsule 3 05/24/19 25 Active dilTIAZem HCl ER Coated Beads 180 MG Oral Capsule Extended Release 24 Hour (Cardizem CD) Take 1 Capsule by mouth in the morning. 90 Capsule 3 06/03/19 24 025 Discontinued Hospital, Clinic, or Other Facility Administered Medication Ordered Dose Route Frequency Start Date End Date Status albuterol sulfate (PROVENTIL) (2.5 MG/3ML) 0.083% inhalation solution 2.5 mgIndications:Chronic obstructive pulmonary disease, unspecified COPD type (HCC) 2.5 mg NEBULIZER Q4H PRN 01/21/2019 Active documented as of this encounter (statuses as of 05/23/2024) Active Problems Problem Noted Date Diagnosed Date Mixed dyslipidemia 12/12/2021 Anxiety 04/05/2021 COPD, group B, by GOLD 2017 classification 05/24 Overview: Per COPD GOLD Classification HTN, goal below 140/90 10/31/2018 Gastroesophageal reflux disease 10/31/2018 Post-nasal drip 02/12/2017 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 Encouraged to take deep breath and use aero chamber. Test performed by Warren NOVELTY WORKER CPFT documented as of this encounter (statuses as of 05/23/2024) Immunizations Name Administration Dates Next Due Pneumococcal [...] No 12/11/2023 Does the household have a [facility]? (Household - for ages [...] AM EDT documented as of this encounter Miscellaneous Notes * Telephone Encounter - Jared Merrill [facility] - 05/23/2024 12:40 PM EST Signed Prescriptions: Disp Refills dilTIAZem HCl ER Coated Beads 180 MG Oral *90 Cap*3 Sig: TAKE 1CAPSULE IN THE MORNINGAuthorizing Provider: DC YOUNGER User: JARED MERRILL documented in this encounter Plan of Treatment Upcoming Encounters Date Type Department Care Team (Late st Contact Info) Description 06/09/2024 7:40 AM EDT Laboratory Laboratory, [place] [address] [place] [address] [place], Lab [address] [place] [address] 06/15/2024 7:00 AM EDT Office Visit [facility] [address] [place] [address] Dc Younger, DO [address] [place] [address] 11/09/2024 9:00 AM EDT Office Visit Cardiology, [place] [address] [place] [address] Liana Ramos PA-C [address] [place] [address] Health Maintenance Due Date Last Done Comments Alpha-1 Antitrypsin 01/01/1976 Hepatitis C Screening 01/01/1976 Cologuard 2002 Fecal Occult Blood Test 2002 Sigmoidoscopy 2002 Zoster Vaccines (1 of 2) 01/01/2008 Pneumococcal Vaccine: 50+ Years (2 of 2 - PCV) 01/02/2020 01/01/2019 AAA Screening 2022 07/24/2016 COVID-19 Vaccine ( season) 2023 Adult Wellness Visit 01/01/2024 DTap/Tdap [...] Not on filedocumented as of this encounter Advance Directives * Full Code (Latest Code Status on File) Date Activated Date Inactivated Comments 04/08/2023 11:45 AM 04/08/2023 8:39 PM Question Answer Comments Discussion of Advance Direct dolores occurred with: Not Discussed due to patient's condition Care Teams Hand Molder And Caster Relationship Specialty Start Date End Date Dc Younger DO [address] [place] [address] PCP - General Family Medicine 04/11/18 documented as of this encounter
--- OUTSIDE RECORDS SUMMARY | 2024-06-17 15:03 | External Medical Summary | Summary of Care ---
Author Name Unknown Organization [facility] Address [address] [place] [address] Phone [phone] Care Team Providers Care Authorization Manager Name Role Phone Dheeraj Younger DO Primary Care Provider [phone] Reason for Referral * Precert (Within 10 days (routine)) - Authorized Specialty Diagnoses / Procedures Referred By Contac t Referred To Contact Radiology Diagnoses Ascending aorta dilation (HCC) Procedures CTA CHEST NON-CORONARY W CONTRAST Liana Ramos PA-C [address] [place] [address] Phone: tel: fax: Referral ID Status Reason Start Date Expiration Date V isits Requested Visits Authorized [id number] Authorized 05/12/2024 11/08/2024 [id number] Reason for Visit * Precert (Within 10 days (routine)) - Authorized Specialty Diagnoses / Procedures Referred By Contac t Referred To Contact Radiology Diagnoses Ascending aorta dilation (HCC) Procedures CTA CHEST NON-CORONARY W CONTRAST Liana Ramos PA-C [address] [place] [address] Phone: tel: fax: Referral ID Status Reason Start Date Expiration Date V isits Requested Visits Authorized [id number] Authorized 05/12/2024 11/08/[phone] Encounter Details Date Type Department Care Team (Latest Contact Info) Description 05/19/2024 8:51 AM EST - 05/19/2024 11:59 PM EST Hospital Encounter Radiology, [facility] [address] [place] [address] Arrived Discharge Disposition: Home - Self Care Allergies Active Allergy Reactions Criticality Noted Date Comments Bee Venom 04/22/2018 documented as of this encounter (statuses as of 05/20/2024) Medications Aspirin 81 MG Tablet 1 Tablet [...] before bedtime. 18 g 5 3 Active dilTIAZem HCl ER Coated Beads 180 [...] for Anxiety. 40 Tablet 2 5 Active Hospital, Clinic, or Other Facility Administered Medication Ordered Dose Route Frequency Start Date End Date Status albuterol sulfate (PROVENTIL) (2.5 MG/3ML) 0.083% inhalation solution 2.5 mgIndications:Chronic obstructive pulmonary disease, unspecified COPD type (HCC) 2.5 mg NEBULIZER Q4H PRN 01/21/2019 Active documented as of this encounter (statuses as of 05/20/2024) Active Problems Problem Noted Date Diagnosed Date Mixed dyslipidemia 12/12/2021 Anxiety 04/05/2021 COPD, group B, by GOLD 2017 classification 05/24 Overview: Per COPD GOLD Classification HTN, goal below 140/90 10/31/2018 Gastroesophageal reflux disease 10/31/2018 Post-nasal drip 02/12/2017 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 Encouraged to take deep breath and use aero chamber. Test performed by Warren ART CRITIC CPFT documented as of this encounter (statuses as of 05/20/2024) Immunizations Name Administration Dates Next Due Pneumococcal [...] Former Cigarettes 1.5 30 1 974 - 2003 Passive Smoke Exposure: Past Smokeless Tobacco: Never [...] as of this encounter Miscellaneous Notes * Result Encounter Note - Liana Ramos PA-C - 05/19/2024 9:[address] with stable mildly enlarged aorta 4.2cm Bicuspid aortic valve present as previously discussed No changes at this time documented in this encounter Plan of Treatment Upcoming Encounters Date Type Department Care Team (Late st Contact Info) Description 06/09/2024 7:40 AM EDT Laboratory Laboratory, [place] [address] [place] [address] [address] [place], [facility] [address] [place] [address] 06/15/2024 7:00 AM EDT Office Visit Family Practice, [place] [address] [place] [phone] Dheeraj Younger DO [address] [place] [address] 11/09/2024 9:00 AM EDT Office Visit Cardiology, [address] [place] [address] Liana Ramos PA-C [address] [place] [address] Health Maintenance Due Date Last Done Comments [...] Not on filedocumented as of this encounter Procedures Procedure Name Priority Date/Time Associated Diagnosis Comments CTA CHEST NON-CORONARY W CONTRAST Routine 05/19/2024 9:00 AM EST Ascending aorta dilation (HCC) documented in this encounter Results * CTA CHEST NON-CORONARY W CONTRAST (05/19/2024 9:00 AM EST) Anatomical Region Laterality Modality Chest, Cardio, Body Computed [place] ography 05/19/2024 8:48 PM EST Impressions 05/19/2024 8:46 PM EST IMPRESSION Bicuspid aortic valve with moderate annular calcification. Ectasia of ascending aorta measuring up to 4.2 cm. Narrative 05/19/2024 8:46 PM EST EXAM EXAM: CTA CHEST NON-CORONARY W CONTRAST DATE and TIME: 05/19/2024 9:00 am HISTORY CLINICAL INFORMATION: aortic dilation TECHNIQUE High resolution helical ct angiogram of the chest was performed before and during the intravenous administration of intravenous contrast. Advanced 3d reconstructions of the aorta and its branch vessels were performed for optimal vascular evaluation on a Nursing [facility] work station. COMPARISON XR CHEST 2 VIEWS, ACC: [id number], dated 2020-07-28 15:30:36; CT ABDOMEN _PELVIS WITH IV CONTRAST WITH ORAL, ACC: [id number], dated 2016-07-24 02:25:55 FINDINGS VASCULAR: Thoracic aorta is patent with no evidence of dissection. Apparent bicuspid aortic valve with moderate annular calcification. No significant atherosclerosis of thoracic aorta. The left vertebral artery originates directly from the aortic arch and is patent. Major arch vessels are patent to the extent visualized. Pulmonary artery is normal in caliber with no central filling defect. Sinus of Valsalva measures 3.2 x 3.4 x 3.6 cm. Ascending aorta measures 4.2 cm in maximum dimension. Descending aorta measures 3.3 cm in maximum dimension. The visualized abdominal aorta is patent and normal in caliber. Celiac artery is patent. Superior mesenteric artery is patent to the extent visualized. Bilateral renal arteries are patent. Chest: No focal airspace consolidation or suspicious pulmonary nodules. Central airways are patent. There is no pleural effusion. No pericardial effusion. Mild coronary artery calcification. No pathologically enlarged thoracic lymph nodes. Upper abdomen: Large lobulations of the anterior liver surface, unchanged from 2017. Bilateral renal cyst. Chest wall/soft tissue: Bilateral gynecomastia. Osseous structures: No suspicious lytic or blastic lesions. Degenerative disc disease in thoracic spine is mild. Procedure Note Peewee Belcher MD - 05/19/2024 EXAM EXAM: CTA CHEST NON-CORONARY W CONTRAST DATE and TIME: 05/19/2024 9:00 am HISTORY CLINICAL INFORMATION: aortic dilation TECHNIQUE High resolution helical ct angiogram of the chest was performed before andduring the intravenous administration of intravenous contrast. Advanced 3d reconstructions of the aorta and its branch vessels wereperformed for optimal vascular evaluation on a Nursing [facility] work station. COMPARISON XR CHEST 2 VIEWS, ACC: [id number], dated 2020-07-28 15:30:36; CT ABDOMEN _PELVIS WITH IV CONTRAST WITH ORAL, ACC: [id number], [id number] 02:25:55 FINDINGS VASCULAR: Thoracic aorta is patent with no evidence of dissection.Apparent bicuspid aortic valve with moderate annular calcification. Nosignificant atherosclerosis of thoracic aorta. The left vertebral arteryoriginates directly from the aortic arch and is patent. Major archvessels are patent to the extent visualized. Pulmonary artery is normalin caliber with no central filling defect. Sinus of Valsalva measures 3.2x 3.4 x 3.6 cm. Ascending aorta measures 4.2 cm in maximum dimension.Descending aorta measures 3.3 cm in maximum dimension. The visualized abdominal aorta is patent and normal in caliber. Celiacartery is patent. Superior mesenteric artery is patent to the extentvisualized. Bilateral renal arteries are patent. Chest: No focal airspace consolidation or suspicious pulmonary nodules.Central airways are patent. There is no pleural effusion. No pericardialeffusion. Mild coronary artery calcification. No pathologically enlargedthoracic lymph nodes. Upper abdomen: Large lobulations of the anterior liver surface, unchangedfrom 2017. Bilateral renal cyst. Chest wall/soft tissue: Bilateral gynecomastia. Osseous structures: No suspicious lytic or blastic lesions. Degenerativedisc disease in thoracic spine is mild. IMPRESSION IMPRESSION Bicuspid aortic valve with moderate annular calcification. Ectasia of ascending aorta measuring up to 4.2 cm. Liana Ramos PA-C RAD CT Final Result documented in this encounter Visit Diagnoses Diagnosis Ascending aorta dilation (HCC) Thoracic aortic ectasia documented in this encounter Administered Medications Inactive Administered Medications - up to 3 most recent administrations Medication Order MAR Action Action Date Dose Rate Site Iopamidol (Isovue 370) inj 80 mL 80 mL, Intravenous, ONCE, On Sat05/19/24 at 0902, For 1 dose, Radiology Medication Routing (Non-IR) Given 05/19/2024 9:00 AM EST 80 mL documented in this encounter Advance Directives * Full Code (Latest Code Status on File) Date Activated Date Inactivated Comments 04/08/2023 11:45 AM 04/08/2023 8:39 PM Question Answer Comments Discussion of Advance Direct dolores occurred with: Not Discussed due to patient's condition Care Teams Authorization Manager Relationship Specialty Start Date End Date Dheeraj Younger DO [address] [place] [address] [address] PCP - General Family Medicine 04/11/18 documented as of this encounter
--- OUTSIDE RECORDS SUMMARY | 2024-06-17 15:03 | External Medical Summary | Summary of Care ---
Author Name Unknown Organization [facility] Address [address] [place] [address] Phone [phone] Care Team Providers Care Office Technology Instructor Name Role Phone Dheeraj Younger DO Primary Care Provider [phone] Reason for Visit * Reason Onset Date Comments Test Results 05/20/2024 Encounter Details Date Type Department Care Team (Late st Contact Info) Description 05/20/2024 [facility] [address] [facility] [place], [place] [phone] Liana Ramos PA-C [address] [facility] [place] [address] Test Results Allergies Active Allergy Reactions Criticality Noted Date [...] use aero chamber. Test performed by Warren JUICE TESTER CPFT documented as of this encounter (statuses [...] 12/11/2023 Does the household have a re lar source of income? (Household - for ages [...] encounter Miscellaneous Notes * Telephone Encounter - Muriel Saelem LPN - 05/20/2024 9:07 AM EST Patient advised of result note via [facility] Message. Muriel Saleem LPN * Telephone Encounter - Muriel Saleem LPN - 05/20/2024 9:01 AM EST ----- Message from Liana Ramos sent at 05/20/2024 8:48 AM EST ----- CT with stable mildly enlarged aorta 4.2cm Bicuspid aortic valve present as previously discussed No changes at this time documented in this encounter Plan of Treatment Upcoming Encounters Date Type Department Care Team (Late st Contact Info) Description 06/09/2024 7:40 AM EDT Laboratory Laboratory, [place] [address] [place] [address] [address] [place], Lab [address] [place] [address] 06/15/2024 7:00 AM EDT Office Visit Family [facility] [address] [place] [address] Dheeraj Younger, [address] [place] [address] 11/09/2024 9:00 AM EDT Office Visit Cardiology, [place] [address] [place] [address] Liana Ramos PA-C [address] [place] [address] Health Maintenance Due Date Last Done Comments [...] Discussed due to patient's condition Care Teams Office Technology Instructor Relationship Specialty Start Date End Date Dheeraj Younger DO [address] [place] [address] PCP - General Family Medicine 04/11/18 documented as of this encounter
--- OUTSIDE RECORDS SUMMARY | 2024-06-17 15:03 | External Medical Summary | Summary of Care ---
Author Name Unknown Organization [facility] Address [address] [place] [address] Phone [phone] Care Team Providers Care Standards Analyst Name Role Phone Dheeraj Younger DO Primary Care Provider [phone] Reason for Visit * Reason Onset Date Comments Order Request 04/09/2024 Encounter Details Date Type Department Care Team (Late st Contact Info) Description 04/09/[address] [facility] [address] [place] [address] Dheeraj Younger DO [address] [place] [address] Order Request Allergies Active Allergy Reactions Criticality Noted Date Comments Bee Venom 04/22/2018 documented as of this encounter (statuses as of 04/10/2024) Medications Aspirin 81 MG Tablet 1 Tablet [...] BEFORE BREAKFAST 90 Capsule 3 4 Active Hospital, Clinic, or Other Facility Administered Medication Ordered Dose Route Frequency Start Date End Date Status albuterol sulfate (PROVENTIL) (2.5 MG/3ML) 0.083% inhalation solution 2.5 mgIndications:Chronic obstructive pulmonary disease, unspecified COPD type (HCC) 2.5 mg NEBULIZER Q4H PRN 01/21/2019 Active documented as of this encounter (statuses as of 04/10/2024) Active Problems Problem Noted Date Diagnosed Date Mixed dyslipidemia 12/12/2021 Anxiety 04/05/2021 COPD, group B, by GOLD 2017 classification 05/24 Overview: Per COPD GOLD Classification HTN, goal below 140/90 10/31/2018 Gastroesophageal reflux disease 10/31/2018 Post-nasal drip 02/12/2017 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 Encouraged to take deep breath and use aero chamber. Test performed by [facility] GENERAL OFFICE DISPATCHER CPFT documented as of this encounter (statuses as of 04/10/2024) Immunizations Name Administration Dates Next Due Pneumococcal [...] ages 0-17 years) Not on file 12/11/2023 Sex and Gender Information Value Date Recorded Sex Assigned at Male 10/31/2018 8:29 AM EDT Legal Sex Male 5:56 AM EST Gender Identity Male 10/31/2018 8:29 AM EDT Sexual Orientation Straight 10/31/2018 8: 29 AM EDT documented as of this encounter Miscellaneous Notes * Telephone Encounter - Desiree Armijo OSA - 04/10/2024 1:31 PM EST Patient has been notified of the message. Patient has been scheduled. Nothing sooner with you, scheduled with Jack Manriquez for 04/17/24. * Telephone Encounter - Courtney Lara OSA - 04/10/2024 12:56 PM EST 1st Attempt LMOM to get pre op moved up sooner. If he calls back, please assist. * Telephone Encounter - Dheeraj Younger DO - 04/10/2024 9:00 AM EST Lets move up pre op evaluation and can evaluate/order this at this appointment. Per notes surgery is 05/08/2024- please confirm. * Telephone Encounter - My Davies OSA - 04/09/2024 11:36 AM EST An order was requested for this patient. Name of Requesting Provider: Mily TA from [facility] Order Requested: echocardiogram Diagnosis/Reason for Request: new onset murmur/ 2 out 3 out 6 murmur If order request is for Mammogram: Is the patient having any breast symptoms? N/A Is there a chance of ? N/A Has the patient had any breast problems in the past? NA What location AND department does the patient wish to have their order completed at? [facility] Fax Number, if applicable: n/a If the caller is not a current patient, please advise the patient to call their current PCP to havethe order's prior to being seen in our office. The patient was informed that our providers would not order anything (medication, labs, etc.) prior to being seen. documented in this encounter Plan of Treatment Upcoming Encounters Date Type Department Care Team (Late st Contact Info) Description 04/17/2024 7:20 AM EST Office Visit [facility] [address] [place] [id number] Jack Manriquez CRNP [address] [place] [id number] 06/09/2024 7:40 AM EDT Laboratory Laboratory, [place] [address] [place] [phone] Jqauelin Grayson [address] [place] [id number] 06/15/2024 7:00 AM EDT Office Visit [facility] [address] [place] [phone] Dheeraj Younger DO [address] [place] [address] Health Maintenance Due Date Last Done Comments Alpha-1 Antitrypsin 01/01/1976 Hepatitis C Screening 01/01/1976 Cologuard 2002 Fecal Occult Blood Test 2002 Sigmoidoscopy 2002 Zoster Vaccines (1 of 2) 01/01/2008 Pneumococcal Vaccine: 50+ Years (2 of 2 - PCV) 01/02/2020 01/01/2019 AAA Screening 2022 07/24/2016 COVID-19 Vaccine ( season) 2023 Adult Wellness Visit 01/01/2024 GFR 12/05/2024 12/06/2023, 12/18, 06/11/2022, Additional history exists Depression Screening 12/10/2024 12/11/2023 O2 ASSESSMENT COMPLETED IN PAST YEAR FOR COPD 01/26/2025 01/27/2024 DTap/Tdap Vaccines (2 - Td or Tdap) 03/05/2025 03/05/2015 Albumin/Creatinine Ratio 12/18/2025 12/18/2022, 12/16 Colonoscopy 07/30/2026 07/30/2016 Colorectal Cancer Screening 07/30/2026 Diabetes Screening 12/05/2026 12/06/2023, 1 , 06/11/2022, Additional history exists Lipid Panel 12/05/2028 12/06/2023, [...] Discussed due to patient's condition Care Teams Standards Analyst Relationship Specialty Start Date End Date Dheeraj Younger DO [address] [place] [address] PCP - General Family Medicine 04/11/18 documented as of this encounter
--- OUTSIDE RECORDS SUMMARY | 2024-06-17 15:03 | External Medical Summary | Summary of Care ---
Author Name Unknown Organization [facility] Address [address] [place] [address] Phone [phone] Care Team Providers Care Rattle Leak And Squeak Repairer Name Role Phone Dheeraj Younger DO Primary Care Provider [phone] Reason for Referral * Evaluate & Treat - Unlimited Visits (Within 10 days (routine)) - Authorized Specialty Diagnoses / Procedures Referred By Contact Referred To Contact Cardiovascular Medicine / Cardiology Diagnoses Murmur, cardiac Jack Manriquez CRNP [address] [place] [address] Phone: tel: fax: Referral ID Status Reason Start Date Expiration Date Visits Requested Visits Authorized [id number] Authorized Specialty Services Required 04/20/2024 999 999 Question Answer Referral Priority Within 10 days (routine) Where should this appointment be scheduled? [facility] For which of the following conditions are you referring? Heart Murmur (New Onset) * Precert (Diagnostic Medical) (Within 10 days (routine)) - Authorized Specialty Diagnoses / Procedures Referred By Contac t Referred To Contact Cardiac Studies Diagnoses Murmur, cardiac Procedures ECHO, COMPLETE (2D), TRANS-THORACIC Jack Manriquez CRNP [address] [place] [address] Phone: tel: fax: Referral ID Status Reason Start Date Expiration Date V isits Requested Visits Authorized [id number] Authorized Precert 04/20/2024 999 999 Reason for Visit * Reason Comments Follow Up Encounter Details Date Type Department Care Team (Latest Contact Info) Description 04/20/2024 9:00 AM EST Office Visit [facility] [place] [address] [place] [address] Jack Manriquez CRNP [address] [place] [id number] Murmur, cardiac*; COPD, group B, by GOLD 2017 classification ([facility]) Allergies Active Allergy Reactions Criticality Noted Date Comments Bee Venom 04/22/2018 documented as of this encounter (statuses as of 04/20/2024) Medications Aspirin 81 MG Tablet 1 Tablet [...] as of this encounter (statuses as of 04/20/2024) Active Problems Problem Noted Date Diagnosed Date Mixed dyslipidemia 12/12/2021 Anxiety 04/05/2021 COPD, group B, by GOLD 2017 classification 05/24 Overview: Per COPD GOLD Classification HTN, goal below 140/90 10/31/2018 Gastroesophageal reflux disease 10/31/2018 Post-nasal drip 02/12/2017 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 Encouraged to take deep breath and use aero chamber. Test performed by [facility] CUSTOM HOME INSTALLER CPFT documented as of this encounter (statuses as of 04/20/2024) Immunizations Name Administration Dates Next Due Pneumococcal [...] Sign Reading Time Taken Comments Blood Pressure 118/80 04/20/2024 9:04 AM EST Pulse 76 04/20/2024 9:04 AM EST Temperature 36 °C (96.8 °F) 04/20/2024 9:04 AM EST Respiratory Rate 18 04/20/2024 9:04 AM EST Oxygen Saturation 94% 04/20/2024 9:04 AM EST Inhaled Oxygen Concentration - - Weight 113.7 kg (250 lb 11.2 oz) 04/20/2024 9:04 AM EST Height 190.5 cm (6' 3") 04/20/2024 9:04 AM EST Body Mass Index 31.34 04/20/2024 9:04 AM EST documented in this encounter Progress Notes * Jack Manriquez CRNP - 04/20/2024 9:22 AM EST Images from the original note were not included. History of Present Illness Chief Complaint Patient presents with pre-op exam Brief Clinical History Mr. Ybarra is a 68 year old male last seen in [facility] on 12/11/2023 by Dheeraj Younger He has a h/o the following chronic conditions indicated on the problem list: Chronic Conditions COPD, group B, by GOLD 2017 classification (HCC) The patient presents today for complaints regarding heart murmur. The patient was scheduled for spinal fusion with Dr. Campos on 05/08/2024. However the procedure got canceled due to anesthesiologisthearing a heart murmur on the patient while doing the Anesthesiology preop examination. The patientwas encouraged to follow with PCP for further evaluation and echocardiogram. Patient did get all his preop testing done including labs, EKG, and chest x-ray at [facility]. We did get the results of his EKG which showed sinus rhythm with first-degree AV block. The patient denies any specific medical complaints today. He does continue taking all his medications as prescribed. He denies any chest pain, chest tightness, shortness of breath, palpitations, or any other symptoms. Physical exam does reveal a cardiac murmur. Suspect aortic stenosis based on hearing it most prominently on the right side of his chest. Recommend echocardiogram and follow up with Cardiology. Patient is open to the same. Reviewed last labs Latest Reference Range & Units 12/06/23 07:41 04/09/24 00:00 Triglycerides <=174 mg/dL 139 Cholesterol <200 mg/dL 151 Non-HDL Cholesterol <=159 mg/dL 101 HDL Cholesterol >39 mg/dL 50 LDL Cholesterol <=129 mg/dL 73 SODIUM 135 - 146 mmol/L 141 POTASSIUM 3.5 - 5.1 MMOL/L 3.7 3.6 (E) CHLORIDE 98 - 107 mmol/L 103 CO2 22 - 32 mmol/L 28 BUN 6 - 20 mg/dL 17 CREATININE 0.6 - 1.4 MG/DL 1.0 0.89 (E) EGFR >=60 mL/min 89 94.51 (E) ANION GAP 7 - 15 mmol/L 10 GLUCOSE 70 - 99 MG/DL 88 62 ! (E) CALCIUM 8.4 - 10.2 mg/dL 9.5 Protein 6.0 - 8.3 g/dL 6.6 HGB 14.0 - 18.0 G/DL 13.6 ! (E) Albumin 3.8 - 5.0 g/dL 4.4 AST 10 - 50 U/L 22 ALT 10 - 50 U/L 18 Alkaline Phosphatase 35 - 130 U/L 94 Bilirubin, Total <=1.2 mg/dL 0.6 PSA <4.10 ng/mL 0.98 PROTEIN, UA-OUTSIDE LAB NEGATIVE NEGATIVE (E) !: Data is abnormal (E): External lab result Review of Systems Constitutional: Negative. Negative for chills and fever. HENT: Negative. Negative for congestion, ear discharge, ear pain, rhinorrhea and sore throat. Eyes: Negative. Negative for visual disturbance. Respiratory: Negative. Negative for cough, chest tightness, shortness of breath and wheezing. Cardiovascular: Negative for chest pain and palpitations. Gastrointestinal: Negative. Negative for abdominal distention, blood in stool, diarrhea, nausea andvomiting. Genitourinary: Negative. Negative for difficulty urinating, dysuria and hematuria. Musculoskeletal: Negative. Skin: Negative. Neurological: Negative for dizziness, weakness, light-headedness and headaches. Psychiatric/Behavioral: Negative. Physical Exam BP 118/80 | Pulse 76 | Temp 96.8 °F (36 °C) (Tympanic) | Resp 18 | Ht 6' 3" (1.905 m) | Wt 250 lb11.2 oz (113.7 kg) | SpO2 94% | BMI 31.34 kg/m² | BSA 2.45 m² Physical Exam Vitals reviewed. Constitutional: Appearance: Normal appearance. He is normal weight. HENT: Head: Normocephalic. Right Ear: Tympanic membrane, ear canal and external ear normal. Left Ear: Tympanic membrane, ear canal and external ear normal. Nose: Nose normal. Mouth/Throat: Pharynx: Oropharynx is clear. Eyes: Extraocular Movements: Extraocular movements intact. Conjunctiva/sclera: Conjunctivae normal. Pupils: Pupils are equal, round, and reactive to light. Cardiovascular: Rate and Rhythm: Normal rate and regular rhythm. Pulses: Normal pulses. Radial pulses are 2+ on the right side and 2+ on the left side. Heart sounds: Murmur heard. Systolic murmur is present with a grade of 2/6. Pulmonary: Effort: Pulmonary effort is normal. Breath sounds: Normal breath sounds. No wheezing. Abdominal: General: Bowel sounds are normal. Palpations: Abdomen is soft. Musculoskeletal: General: Normal range of motion. Cervical back: Normal range of motion. Skin: General: Skin is warm and dry. Capillary Refill: Capillary refill takes less than 2 seconds. Neurological: Mental Status: He is alert and oriented to person, place, and time. Mental status is at baseline. Psychiatric: Mood and Affect: Mood normal. Assessment and Plan Murmur, cardiac (Primary) - ECHO, COMPLETE (2D), TRANS-THORACIC; Future; Expected date: 04/20/2024 - CARDIOLOGY REFERRAL OP COPD, group B, by GOLD 2017 classification (HCC) - continue taking albuterol inhaler as needed. Wrap-Up Will follow up with echocardiogram when resulted. Pt is to follow up as needed. Pt is to notify us of any concerning or worsening symptoms. Pt expresses understanding and satisfaction with plan. Time: I spent a total of 30-39 minutes (exact time 35 mins) on the date of service in preparation, delivery, and documentation of the care provided to Yanick Ybarra excluding any time spent in the performance of separately billed services. MARYCHUY Morales documented in this encounter Nursing Notes * Destinee Major CCMA - 04/20/2024 9:01 AM EST Chief Complaint Patient presents with Follow Up Pt is here today due to needing further testing before he is cleared for surgery. Pt was scheduled 05/08 for spinal fusion with Dr. Campos. Pt had some cardiac testing done at [facility] and they said they found a heart murmur and advised him to see PCP office for additional steps. Patient has been verbally educated on the need or importance of Pneumococcal Vaccine and Shingles Vaccine and has declined topic(s). documented in this encounter Plan of Treatment Upcoming Encounters Date Type Department Care Team (Late st Contact Info) Description 04/23/2024 9:30 AM EST Cardiac Studies Cardiac Studies, [address] [place] [address] 04/28/2024 11:00 AM EST Office Visit [facility] [address] [place] [address] Aldair Olivas DO [address] [place] [address] 06/09/2024 7:40 AM EDT Laboratory Laboratory, [place] [address] [place] [address] [phone] [facility] [address] [place] [address] 06/15/2024 7:00 AM EDT Office Visit [facility] [address] [place] [address] [address] Dheeraj Younger DO [address] [place] [address] Scheduled Orders Name Type Priority Associated Diagnoses Orde r Schedule ECHO, COMPLETE (2D), TRANS-THORACIC Echocardiology Routine Murmur, cardiac Expected: 04/20/2024, Expires: 05/18/2026 Scheduled Referrals Name Type Priority Associated Diagnoses Orde r Schedule CARDIOLOGY REFERRAL OP Referral Within 10 days (routine) Murmur, cardiac Ordered: 04/20/2024 Health Maintenance Due Date Last Done Comments [...] as of this encounter Visit Diagnoses Diagnosis Murmur, cardiac- Primary Undiagnosed cardiac murmurs COPD, group B, by GOLD 2017 classification (HCC) documented in this encounter Advance Directives * Full Code (Latest Code Status on File) Date Activated Date Inactivated Comments 04/08/2023 11:45 AM 04/08/2023 8:39 PM Question Answer Comments Discussion of Advance Direct dolores occurred with: Not Discussed due to patient's condition Care Teams Rattle Leak And Squeak Repairer Relationship Specialty Start Date End Date Dheeraj Younger DO [address] [place] [address] PCP - General Family Medicine 04/11/18 documented as of this encounter
--- OUTSIDE RECORDS SUMMARY | 2024-06-17 15:03 | External Medical Summary | Summary of Care ---
Author Name Unknown Organization [facility] Address [address] [place] [address] Phone [phone] Care Team Providers Care Decal Cutter Name Role Phone Dheeraj Younger DO Primary Care Provider [phone] Reason for Visit * Reason Comments Outpatient Testing Encounter Details Date Type Department Care Team (Late st Contact Info) Description 06/09/2024 7:40 AM EDT Laboratory Laboratory, [place] [address] [place] [address] [place] [address] [place] [phone] Mixed dyslipidemia; HTN, goal below 140/90 Allergies Active Allergy Reactions Criticality Noted Date [...] use aero chamber. Test performed by [facility] LAW EXAMINER CPFT documented as of this encounter (statuses [...] No 12/11/2023 Does the household have a [employer] [place] source of income? (Household - for ages [...] Description 06/15/2024 7:00 AM EDT Office Visit [facility] [address] [place] [phone] Dheeraj Younger, DO [address] [place] [address] 11/09/2024 9:00 AM EDT Office Visit [facility] [address] [place] [address] Liana Ramos PA-C [address] [place] [address] Pending Results Name Type Priority Associated Diagnoses Date /Time LIPID PANEL WITH DIRECT LDL IF TG IS HIGH Lab Routine Mixed dyslipidemia 06/09/2024 7:47 AM EDT COMPREHENSIVE METABOLIC PANEL Lab Routine Mixed dyslipidemia 06/09/2024 7:47 AM EDT ALBUMIN / CREATININE RATIO, URINE Lab Routine HTN, goal below 140/90 06/09/2024 11:11 AM EDT Health Maintenance Due Date Last [...] Visit Diagnoses Diagnosis Mixed dyslipidemia Mixed hyperlipidemia HTN, goal below 140/90 Unspecified essential hypertension documented in this encounter Advance Directives * Full Code (Latest Code Status on File) Date Activated Date Inactivated Comments 04/08/2023 11:45 AM 04/08/2023 8:39 PM Question Answer Comments Discussion of Advance Direct dolores occurred with: Not Discussed due to patient's condition Care Teams Decal Cutter Relationship Specialty Start Date End Date Dheeraj Younger DO [address] [place] [phone] PCP - General Family Medicine 04/11/18 documented as of this encounter
--- OUTSIDE RECORDS SUMMARY | 2024-06-17 15:03 | External Medical Summary ---
Author Name Unknown Address Unknown Organization K01:LABORATORY [facility] - [address] [facility] [address] Laboratory Report Ordering Provider Test Date Status JOSEF IRWIN 06/09/2024 07:47:33 Final Observation Date Value Abnormality Reference (Units ) Status BUN 06/09/2024 07:47:33 14 6-20 (mg/dL) Final Creatinine 06/09/2024 07:47:33 0.9 0.6-1.2 (mg/dL) Final Glomerular filtration rate/1.73 sq M.predicted [Volume Rate/Area] in Serum, Plasma or Blood by Creatinine-based formula (CKD-EPI) 06/09/2024 07:47:33 >90 >=60 (mL/min) Final eGFR is calculated based on the CKD-EPI 2020 equation. Sodium 06/09/2024 07:47:33 143 135-146 (m mol/L) Final Potassium 06/09/2024 07:47:33 3.4 Below low normal 3.5 -5.1 (mmol/L) Final Cl 06/09/2024 07:47:33 102 98-107 (mm ol/L) Final CO2 06/09/2024 07:47:33 26 22-32 (mmo l/L) Final Anion gap 06/09/2024 07:47:33 15 7-15 (mmol /L) Final Glucose 06/09/2024 07:47:33 83 70-120 (mg /dL) Final Albumin 06/09/2024 07:47:33 4.4 3.8-5.0 (g /dL) Final AST (Aspartate aminotransferase) 06/09/2024 07:47:33 23 10-50 (U/L) Fin al Alk Phos 06/09/2024 07:47:33 96 35-130 (U/ L) Final Bilirubin, Total 06/09/2024 07:47:33 0.6 <=1 .2 (mg/dL) Final Calcium 06/09/2024 07:47:33 9.5 8.4-10.2 ( mg/dL) Final Protein 06/09/2024 07:47:33 6.7 6.0-8.3 (g /dL) Final ALT (Alanine aminotransferase) 06/09/2024 07:47:33 25 10-50 (U/L) Olvin long Performing Location LABORATORY [facility] - [facility] [address] [facility] [address]
--- OUTSIDE RECORDS SUMMARY | 2024-06-17 15:03 | External Medical Summary | Summary of Care ---
Author Name Unknown Organization [facility] Address [address] [place] [address] Phone [phone] Care Team Providers Care Planning Division Superintendent Name Role Phone Dheeraj Younger DO Primary Care Provider [phone] Reason for Visit * Reason Onset Date Comments MyCode Consent 05/18/2024 Encounter Details Date Type Department Care Team (Late st Contact Info) Description 05/18/2024 Orders Only Outcomes Research Department [address] [place] [address] Twyla Asencio CHRA MyCode Research Other*[id number]* Allergies Active Allergy Reactions Criticality Noted Date Comments Bee Venom 04/22/2018 documented as of this encounter (statuses as of 05/18/2024) Medications Aspirin 81 MG Tablet 1 Tablet [...] bedtime. 18 g 5 01/09/20 23 Active dilTIAZem HCl ER Coated Beads 180 MG Oral Capsule Extended Release 24 Hour (Cardizem CD) Take 1 Capsule by mouth in the morning. 90 Capsule 3 06/03/19 24 Active Atenolol 100 MG Oral Tablet (Tenormin)Indica [...] Tablet by mouth in the morning. Active Ibuprofen 200 MG Oral Tablet (Motrin) Take 1 Tablet by mouth every 4 hours as needed. 025 Discontinued Hospital, Clinic, or Other Facility Administered Medication Ordered Dose Route Frequency Start Date End Date Status albuterol sulfate (PROVENTIL) (2.5 MG/3ML) 0.083% inhalation solution 2.5 mgIndications:Chronic obstructive pulmonary disease, unspecified COPD type (HCC) 2.5 mg NEBULIZER Q4H PRN 01/21/2019 Active documented as of this encounter (statuses as of 05/18/2024) Active Problems Problem Noted Date Diagnosed Date Mixed dyslipidemia 12/12/2021 Anxiety 04/05/2021 COPD, group B, by GOLD 2017 classification 05/24 Overview: Per COPD GOLD Classification HTN, goal below 140/90 10/31/2018 Gastroesophageal reflux disease 10/31/2018 Post-nasal drip 02/12/2017 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 Encouraged to take deep breath and use aero chamber. Test performed by Warren SHIP CARPENTER CPFT documented as of this encounter (statuses as of 05/18/2024) Immunizations Name Administration Dates Next Due Pneumococcal [...] No 12/11/2023 Does the household have a [facility] source [facility] income? (Household - for ages [...] AM EDT documented as of this encounter Progress Notes * Twyla Asencio CHRA - 05/18/2024 8:48 AM EST MyCode Consent Documentation Yanick Ybarra provided consent/authorization to participate in the MyCode Project. documented in this encounter Plan of Treatment Upcoming Encounters Date Type Department Care Team (Late st Contact Info) Description 05/19/2024 9:00 AM EST Hospital Encounter Radiology, [address] [place] [address] 06/09/2024 7:40 AM EDT Laboratory Laboratory, [place] [address] [place] [address] [place], [facility] [address] [place] [address] 06/15/2024 7:00 AM EDT Office Visit Family Practice, [place] [address] [place] [address] Dheeraj Younger, DO [address] [place] [address] 11/09/2024 9:00 AM EDT Office Visit Cardiology, [place] [address] [place] [address] Liana Ramos PA-C [address] [place] [address] Scheduled Orders Name Type Priority Associated Diagnoses Orde r Schedule MYCODE INITIAL ADULT Lab Routine MyCode Research Other*[id number] Expected: 05/18/2024 (Approximate), Expires: 06/07/2025 Health Maintenance Due Date Last Done Comments [...] as of this encounter Visit Diagnoses Diagnosis MyCode Research Other*[id number] Primary documented in this encounter Advance Directives * Full Code (Latest Code Status on File) Date Activated Date Inactivated Comments 04/08/2023 11:45 AM 04/08/2023 8:39 PM Question Answer Comments Discussion of Advance Direct dolores occurred with: Not Discussed due to patient's condition Care Teams Planning Division Superintendent Relationship Specialty Start Date End Date Dheeraj Younger DO [address] [place] [id number] PCP - General Family Medicine 04/11/18 documented as of this encounter
--- OUTSIDE RECORDS SUMMARY | 2024-06-17 15:03 | External Medical Summary | Summary of Care ---
Author Name Unknown Organization [facility] Address [address] [place] [address] Phone [phone] Care Team Providers Care Brake Rider Name Role Phone Dheeraj Younger DO Primary Care Provider [phone] Reason for Visit * Reason Comments Physical-Exam Encounter Details Date Type Department Care Team (Latest Contact Info) Description 05/18/2024 9:00 AM EST Office Visit [facility] [address] [place] [id number] Jack Manriquez CRNP [address] [place] [address] Preop examination*; Muscle spasm of back; COPD, group B, by GOLD 2017 classification (HCC); HTN, goal below 140/90; Gastroesophageal reflux disease, unspecified whether esophagitis present; Anxiety; Mixed dyslipidemia Allergies Active Allergy Reactions Criticality [...] Anxiety. 40 Tablet 2 05/19/19 25 Active Ibuprofen 200 MG Oral Tablet (Motrin) [...] use aero chamber. Test performed by Warren BOX MAKER CPFT documented as of this encounter (statuses [...] Sign Reading Time Taken Comments Blood Pressure 129/89 05/18/2024 9:08 AM EST avg Pulse 81 05/18/2024 9:08 AM EST Temperature 36.1 °C (97 °F) 05/18/2024 9:01 AM EST Respiratory Rate 20 05/18/2024 9:01 AM EST Oxygen Saturation 97% 05/18/2024 9:01 AM EST Inhaled Oxygen Concentration - - Weight 111.7 kg (246 lb 4.8 oz) 05/18/2024 9:01 AM EST Height 190.5 cm (6' 3") 05/18/2024 9:01 AM EST Body Mass Index 30.79 05/18/2024 9:01 AM EST documented in this encounter Progress Notes * Jack Manriquez CRNP - 05/18/2024 9:19 AM EST Images from the original note were not included. Pre-Operative Medical Evaluation Brief Clinical History Mr. Ybarra is a 68 year old male last seen in [facility] on 04/20/2024 by Jack Manriquez He has a h/o the following chronic conditions indicated on the problem list: Chronic Conditions COPD, group B, by GOLD 2017 classification (HCC) History of Present Illness The patient, with a history of COPD, hyperlipidemia, and hypertension, presents with a chief complaint of muscle pain in the chest and ribs. The pain, which has been a recurring issue for about ten years, was initially triggered by a strain while lifting a box. The patient describes the pain as located on the left side of the chest, radiating towards the nipple. The pain is exacerbated by movement and stretching. The patient has been self-medicating with ibuprofen, but has discontinued due to gastrointestinal discomfort. The patient also expresses concerns about an upcoming back surgery scheduled for June 17, with Dr. Campos from [facility]. The surgery involves the fusion of L3, L4, and L5 vertebrae. The patient has been experiencing anxiety related to the surgery and a recently diagnosed heart condition. The patient has been informed of a valve issue and an aneurysm that needs to be addressed. A CT scan is scheduled for the following day to assess the size of the aneurysm. The patient reports no recent use of the albuterol inhaler prescribed for COPD, no smoking, and no issues with the atorvastatin taken for hyperlipidemia. The patient is also on a regimen of lisinopril-hydrochlorothiazide, atenolol, and diltiazem for hypertension. The patient has been taking omeprazole for acid reflux. Procedure Information Type of Surgery: Fusion of L3,4,5 Referring Physician / Surgeon: Dr. Campos Date of procedure: 06/17/24 Brief History of Present Illness: Worsening low back pain Review of Systems: Constitutional ROS: No change in weight, No weakness, No fatigue, and No fevers, sweats, or chills Eye ROS: No recent significant change in vision and No eye pain, redness, discharge Ear ROS: No ear pain, No drainage, No tinnitus or vertigo, and No recent change in hearing Nose ROS: No history of frequent colds or sinusitis, No nasal stuffiness, Mouth/Throat ROS: No bleeding gums, No thrush, or No sore throat Neck ROS: No lumps or masses, No swollen glands, and No significant pain in neck Pulmonary ROS: No cough, sputum, or hemoptysis, No wheezing, No rales, No shortness of breath, and No recent change in breathing Cardiovascular ROS: No chest pain, No shortness of breath, No dyspnea on exertion, No orthopnea, Noparoxysmal nocturnal dyspnea, No edema, No palpitations, Gastrointestinal ROS: No abdominal pain, No change in bowel habits, No significant heartburn, No significant change in appetite, No nausea, vomiting, diarrhea, or constipation Musculoskeletal/Extremities ROS: No pain, redness or swelling on the joints. Complaining of chest wall pain on left side with radiation to back. 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) Current Medications Multi-Vitamins Oral Tablet, 1 Tablet, Oral, Daily(AM) Atenolol 100 MG Oral Tablet (Tenormin), 100 mg, Oral, Daily(AM) Atorvastatin Calcium 20 MG Oral Tablet (Lipitor), 20 mg, Oral, Daily(AM) Lisinopril-hydroCHLOROthiazide 20-12.5 MG Oral Tablet, TAKE 2 TABLETS EVERY MORNING Omeprazole 40 MG Oral Capsule Delayed Release (PriLOSEC), TAKE 1 CAPSULE BY MOUTH BEFORE BREAKFAST dilTIAZem HCl ER Coated Beads 180 MG Oral Capsule Extended Release 24 Hour (Cardizem CD), 180 mg, Oral, Daily(AM) Fexofenadine HCl 180 MG Oral Tablet, 180 mg, Oral, Daily(AM) Aspirin 81 MG Tablet, 81 mg, Daily(AM) Ibuprofen 200 MG Oral Tablet (Motrin), 200 mg, Oral, Q4H PRN Ventolin HFA 108 (90 Base) MCG/ACT Inhalation Aerosol Solution, 2 Puff, Inhalation, QID(AM/NOON/PM/HS) Acetaminophen 500 MG Oral Tablet, 500 mg, Oral, Q6H PRN EPINEPHrine 0.3 MG/0.3ML Injection Solution Auto-injector (Autoinjector), Use as directed. albuterol sulfate (PROVENTIL) (2.5 MG/3ML) 0.083% inhalation solution 2.5 mg, 2.5 mg Allergies: Bee venom Past Medical History: has a past medical history of Anal fissure, Anxiety, Arthritis, Chronic obstructive pulmonary disease (HCC) (10/31/2018), Gastroesophageal reflux disease (10/31/2018), HLD (hyperlipidemia), HTN, goalbelow 140/90 (10/31/2018), Lumbar radiculopathy, Lumbar stenosis, and Pseudophakia. Past Surgical History: has a past surgical history that includes remove cataract, insert lens prosth; lasering of secondary cataract (01/05/2019); EGD, Flexible, Diagnostic (N/A, 09/06/2021); Inject Dx/Ther Substance Interlaminar Lumbar/Sacral W Image Guide (N/A, 03/09/2022); L-/S-spine Paravertebral facet Inj,1 level (Right, 05/23/2022); L-/S-spine Paravertebrl facet Inj,2 levels (Right, 05/23/2022); L-/S-spine Paravertebrl facet Inj,3 levels (Right, 05/23/2022); Lumbar / Sacral Epidural, single level (Right, 08/08/2022); information; information; incision of anal sphincter (N/A, 04/08/2023); Lumbar / Sacral Epidural, single level (Right, 05/14/2023); Lumbar / Sacral Epidural, single level (Right, 10/17/2023); and Sacroiliac Joint Inject w/Guidance (Bilateral, 12/20/2023). Social History: reports that he quit smoking about 21 years ago. His smoking use included cigarettes. He started smoking about 51 years ago. He has a 45 pack-year smoking history. He has been exposed to tobacco smoke. He has never used smokeless tobacco. He reports current alcohol use of about 4.0 - 6.0 standard drinks of alcohol per week. He reports that he does not use drugs. Family History: family history is not on file. Anesthesia History Type of Anesthesia: General Endotracheal and Caudal block Anesthesia reaction: No History of surgical complications: none Personal history of venous thromboembolic disease: none Physical Exam Vitals: 05/18/24 0901 05/18/24 0908 Temp: 97 °F (36.1 °C) Pulse: 81 81 Resp: 20 SpO2: 97% BP: 131/90 129/89 BMI: 30.79 General: alert, healthy, and no distress Head: Normocephalic, No masses, lesions, tenderness or abnormalities Eye Exam: PERRLA, extraocular movements intact, conjunctiva are pink and non- injected, sclera clear Ears: External ears normal, Canals clear, TM's Normal Nose: no mucosal erythema, no mucosal edema, no purulent discharge Oropharynx: no exudate, no erythema, lips, buccal mucosa, and tongue normal, and mucous membranes are moist Neck: supple, no adenopathy Lymph: no palpable lymphadenopathy Heart: regular rate & rhythm, no murmur, and no gallops Lungs: chest symmetric with normal AP diameter, no chest deformities noted, lungs clear to auscultation. Some left lateral chest wall tenderness and mid left back muscle tenderness. Pulses: radial=2/4 Abdomen: abdomen soft, non-tender, and normal bowel sounds Neuro Exam: alert & oriented x 3 with fluent speech, gait normal Skin: skin color, texture, turgor are normal, no rashes or significant lesions Labs reviewed and are significant for: Latest Reference Range & Units 04/09/24 00:00 POTASSIUM 3.5 - 5.1 MMOL/L 3.6 (E) CREATININE 0.6 - 1.4 MG/DL 0.89 (E) EGFR 94.51 (E) GLUCOSE 70 - 99 MG/DL 62 ! (E) HGB 14.0 - 18.0 G/DL 13.6 ! (E) !: Data is abnormal (E): External lab result EKG by my review is significant for: Normal sinus rhythm with first-degree AV block. Surgical Risk Scoring Revised Cardiac Risk Index (RCRI) High-risk type of surgery (examples include vascular and any open intraperitoneal or intrathoracic procedures): 0=No History of ischemic heart disease (history of myocardial infarction or positive exercise test, current compliant of chest pain considered to be secondary to myocardia ischemia, use of nitrate therapy, or ECG with pathological Q waves; do not count prior coronary revascularization procedure unless one of the other criteria for ischemic heart disease is present): 0=No History of heart failure: 0=No History of cerebrovascular disease: 0=No Diabetes mellitus requiring treatment with insulin: 0=No Preoperative serum creatinine >2.0 mg/dL (177 micromol/L): 0=No Pt has revised cardiac index score of: No Risk Factors- 0.4% (95% CI: 0.1-0.8) Assessment and Plan Assessment & Plan Musculoskeletal Chest Pain Chronic left-sided chest pain, exacerbated by movement and palpation, likely due to a prior muscle strain. Overuse of ibuprofen for pain management. -Start Baclofen as needed for muscle relaxation. Cautioned about potential drowsiness and not to take concurrently with Hydroxyzine. -Recommended physical therapy exercises, specifically following Dr. Thakkar's online program. -Discontinue ibuprofen due to overuse and potential side effects. Anxiety Experiencing increased anxiety related to upcoming back surgery and recent cardiac diagnoses. -Prescribe Hydroxyzine as needed for anxiety. Cautioned about potential drowsiness and not to take concurrently with Baclofen. COPD Stable, no recent use of Albuterol inhaler. -Continue Albuterol inhaler as needed. Hyperlipidemia Well-controlled on Atorvastatin 20mg daily. -Continue Atorvastatin 20mg daily. Hypertension Well-controlled on Lisinopril-Hydrochlorothiazide 20-12.5mg daily, Atenolol 100mg daily, and Diltiazem 180mg daily. -Continue current antihypertensive regimen. GERD On Omeprazole 40mg daily. -Continue Omeprazole 40mg daily. Preoperative Evaluation Scheduled for L3-L5 fusion surgery on June [address] Campos. Moderate cardiac risk due to valvedisease and aneurysm. -Continue Aspirin 81mg daily, stop 7 days prior to surgery. -Continue Lisinopril-Hydrochlorothiazide 20-12.5mg daily, stop on day of surgery. -Continue current medications, except as noted for surgery. -Plan for postoperative follow-up. Preop examination (Primary) - Based on the patient's HPI and physical examination I feel that the patient is clinically optimized for the given surgical procedure. Patient was clinically optimized by Cardiology as well. - Note from Cardiology -In terms of preop risk assessment, per [...] days prior to procedure per surgeons direction Muscle spasm of back - Baclofen 10 MG Oral Tablet (Lioresal); Take 1 Tablet by mouth in the morning and 1 Tablet before bedtime. COPD, group B, by GOLD 2017 classification (HCC) See above for more details regarding assessment and plan HTN, goal below 140/90 See above for more details regarding assessment and plan Gastroesophageal reflux disease, unspecified whether esophagitis present See above for more details regarding assessment and plan Anxiety - hydrOXYzine HCl 25 MG Oral Tablet; Take 1 Tablet by mouth 3 times a day as needed for Anxiety. Mixed dyslipidemia See above for more details regarding assessment and plan Functional Assessment They are able to walk up a flight of stairs, walk two blocks at a moderate pace, do heavy house work like vacuuming, and grocery shop. The patient's functional status is adequate (equal to 4 METS). 1 MET: 4 METs: 4-10 METs: Can take care of self, such as eat, dress or use the toilet. Can walk to block or go up a flight of steps. Can do heavy house work. Surgical Risk Assessment Patient is moderate medical risk for the listed procedure. Medication adjustments: Stop aspirin 7 days prior to surgery. Additional consults or testing: None. I spent a total of 30-39 minutes (exact time 30 mins) on the date of service in preparation, delivery, and documentation of the care provided to Yanick Ybarra excluding any time spent in the performance of separately billed services or time spent by another provider/QHP. MARYCHUY Morales [facility] documented in this encounter Nursing Notes * Destinee Major CCMA - 05/18/2024 8:59 AM EST Chief Complaint Patient presents with Physical-Exam Pt is here today for his annual CPE. Pt would like to discuss his chest muscles hurting again. No new complaints. Pt declined pneu and shingles vaccines today. documented in this encounter Plan of Treatment Upcoming Encounters Date Type Department Care Team (Late st Contact Info) Description 05/19/2024 9:00 AM EST Hospital Encounter Radiology, [address] [place] [address] 06/09/2024 7:40 AM EDT Laboratory Laboratory, [place] [address] [place] [address] [place] [facility] [address] [place] [address] 06/15/2024 7:00 AM EDT Office Visit Family [facility] [address] [place] [address] Dheeraj Younger DO [address] [place] [address] 11/09/2024 9:00 AM EDT [address] [address] Liana Ramos PA-C [address] [place] [address] Health Maintenance Due Date Last Done Comments [...] as of this encounter Visit Diagnoses Diagnosis Preop examination- Primary Preoperative examination, unspecified Muscle spasm of back Other symptoms referable to back COPD, group B, by GOLD 2017 classification (HCC) HTN, goal below 140/90 Unspecified essential hypertension Gastroesophageal reflux disease, unspecified whether esophagitis present Anxiety Anxiety state, unspecified Mixed dyslipidemia Mixed hyperlipidemia documented in this encounter Advance Directives * Full Code (Latest Code Status on File) Date Activated Date Inactivated Comments 04/08/2023 11:45 AM 04/08/2023 8:39 PM Question Answer Comments Discussion of Advance Direct dolores occurred with: Not Discussed due to patient's condition Care Teams Brake Rider Relationship Specialty Start Date End Date Dheeraj Younger DO [address] [place] [id number] PCP - General Family Medicine 04/11/18 documented as of this encounter
--- OUTSIDE RECORDS SUMMARY | 2024-06-17 15:03 | External Medical Summary | Summary of Care ---
Author Name Unknown Organization [facility] Address [address] [place] [address] Phone [phone] Care Team Providers Care Tax Collection Coordinator Name Role Phone Dheeraj Younger DO Primary Care Provider [phone] Reason for Visit * Reason Onset Date Comments MyCode Nonconsent- Withdrew Consent 05/18/2024 Encounter Details Date Type Department Care Team (Late st Contact Info) Description 05/18/2024 Orders Only Outcomes Research Department [address] [place] [address] Luis M, Mykala, CHRA MyCode Nonconsent Withdrawal Documentation Allergies Active Allergy Reactions Criticality Noted Date [...] use aero chamber. Test performed by Warren BAR USEFUL OR BUSSER CPFT documented as of this encounter (statuses [...] No 12/11/2023 Does the household have a [facility] source of income? (Household - for ages [...] as of this encounter Progress Notes * Darci Asencio CHRA - 05/18/2024 10:32 AM EST [place] Nonconsent Withdrawal Documentation Yanick Ybarra was approached in the clinic regarding participation in the MyCode Project and originally consented to the study. Yanick Ybarra then withdrew consent to participate in the project. documented in this encounter Plan of Treatment Upcoming Encounters Date Type Department Care Team (Late st Contact Info) Description 05/19/2024 9:00 AM EST Hospital Encounter Radiology, [facility] [address] [place] [address] 06/09/2024 7:40 AM EDT Laboratory Laboratory, [place] [address] [place] [address] [place], [facility] [address] [place] [address] 06/15/2024 7:00 AM EDT Office Visit Family Practice, [place] [address] [place] [address] Dheeraj Younger, [address] [place] [address] 11/09/2024 9:00 AM EDT Office Visit Cardiology, [place] [address] [place] [address] Liana Ramos PA-C [address] [facility] [place] [address] Health Maintenance Due Date Last Done Comments Alpha-1 Antitrypsin 01/01/1976 Hepatitis C Screening 01/01/1976 Cologuard 2002 Fecal Occult Blood Test 2002 Sigmoidoscopy 2002 Zoster Vaccines (1 of 2) 01/01/2008 Pneumococcal Vaccine: 50+ Years (2 of 2 - PCV) 01/02/2020 01/01/2019 AAA Screening 2022 07/24/2016 COVID-19 Vaccine (1 - 2023- season) 2023 Adult Wellness Visit 01/01/2024 DTap/Tdap [...] Discussed due to patient's condition Care Teams Tax Collection Coordinator Relationship Specialty Start Date End Date Dheeraj Younger DO [address] [place] [address] PCP - General Family Medicine 04/11/18 documented as of this encounter
[2024-06-17] MEDS ORDERED: LEVALBUTEROL 1.25 MG/3 ML NEB NEB PRN (15:40)
[2024-06-17] MEDS: oxyCODONE HCL IR 5 MG TAB (IMMEDIATE RELEASE) PO PRN (18:14)
[2024-06-17] MEDS: ALUMINUM/MAGNESIUM SUSP 30 ML UDC PO PRN (20:02)
[2024-06-17] MEDS: DOCUSATE SODIUM/SENNA 50/8.6MG TAB PO SCH (20:24)
[2024-06-17] MEDS: ACETAMINOPHEN 500 MG TAB PO PRN (20:24)
[2024-06-17] MEDS: KETOROLAC 30 MG/ML VIAL IV PRN (20:25)
[2024-06-18] MEDS: POLYETHYLENE (MIRALAX) 17 GM PACK PO SCH (06:20)
[2024-06-18 07:10] LABS: Basophils # (auto) 0.01 K/uL (0.00-0.20); Basophils % (auto) 0.1 %; Hematocrit (blood only) 36.1 % (42.0-52.0); Hemoglobin 12.4 g/dl (14.0-18.0); Immature Granulocytes % (auto) 0.6 %; Lymphocytes # (auto) 1.39 K/uL (1.20-3.40); Lymphocytes % (auto) 7.7 %; Mean Corpuscular Hemoglobin 30.9 pg (25.0-34.0); Mean Corpuscular Hgb Conc 34.3 g/dL (32.0-36.0); Mean Platelet Volume 9.9 fL (9.4-12.4); Monocytes # (auto) 1.47 K/uL (0.11-0.59); Monocytes % (auto) 8.1 %; Neutrophils # (auto) 15.07 K/uL (1.40-6.50); Neutrophils % (auto) 83.5 %; Platelet Count 163 K/uL (130-400); RDW Coefficient of Variation 12.7 % (11.5-14.5); RDW Standard Deviation 42.2 fL (36.4-46.3); Red Blood Count 4.01 M/uL (4.70-6.10); White Blood Count 18.04 K/ul (4.8-10.8)
[2024-06-18] MEDS: PANTOprazole 40 MG TAB PO SCH (08:05)
[2024-06-18] MEDS: dilTIAZem HCL 180 MG CAPCR PO SCH (08:12)
[2024-06-18] MEDS: ATENOLOL 50 MG TABLET PO SCH (08:12)
[2024-06-18] MEDS: ASPIRIN 81 MG ECTAB PO SCH (08:12)
[2024-06-18] MEDS: ATORVASTATIN 20 MG TAB PO SCH (08:13)
[2024-06-18] MEDS: dexAMETHasone 6 MG in SYRINGE 0 ML IV SCH (08:13)
[2024-06-18] MEDS: FEXOFENADINE HCL 180 MG TAB PO SCH (08:13)
--- NOTE | 2024-06-18 08:23 | Orthopedic Progress Note ---
Date of Service June 18, 2024 Assessment & Plan (1) Multilevel lumbosacral spondylosis with radiculopathy: Plan: At this time we will initiate physical therapy monitor his SERGIO operatively discharge home in the next few days. Admission and Anticipated Discharge Date Admission Date: June 17, 2024 Subjective Back pain controlled leg symptoms improved Physical Exam Physical Exam: Patient is in bed at this time. Is comfortable. Good strength testing. Results & Data Vital Signs (Past 12 Hours) Vital Signs Temp Pulse Resp BP Pulse Ox O2 Del Method 06/18/24 07:51 Room Air 06/18/24 07:22 36.7 C 70 16 143/87 H 97 Room Air 06/18/24 02:54 36.7 C 69 18 111/61 96 Room Air 06/17/24 23:03 36.7 C 71 16 110/72 94 Room Air
[2024-06-18] MEDS ORDERED: LISINOPRIL/HCTZ 20/12.5MG 1 TAB TAB PO SCH (09:00)
[2024-06-18] MEDS ORDERED: LEVALBUTEROL 1.25 MG/3 ML NEB NEB PRN (12:35)
[2024-06-18] MEDS: LEVALBUTEROL 1.25 MG/3 ML NEB NEB STA (12:49)
[2024-06-18] MEDS: IPRATROPIUM BROMIDE NEB SOLN 0.02% 0.5MG/2.5ML VIAL NEB STA (12:49)
--- NOTE | 2024-06-18 13:12 | Hospitalist Progress Note ---
Date of Service June 18, 2024 Assessment & Plan (1) S/P spinal surgery: (2) Multilevel lumbosacral spondylosis with radiculopathy: Plan: per previous hospitalist notes with addendum: Post op day# 0 S/P L3-L5 decompression and fusion by Dr Beth BREEN#[phone] Pain management per ortho Wound management per ortho PT/OT as appropriate DVT prophylaxis per ortho Incentive spirometry Monitor H&H for acute blood loss anemia; pre-op Hgb: 14 4/3 Hg 14 --> 12 monitor (3) Hypertension: Plan: Continue atenolol, diltiazem Hold lisinopril, HCTZ and reassess tomorrow 06/18 hold Lisinopril/HCTZ for now to prevent hypotension, dizziness monitor closely (4) HLD (hyperlipidemia): Plan: Continue home atorvastatin (5) COPD (chronic obstructive pulmonary disease): Plan: No signs exacerbation Levalbuterol as needed (+) productive cough with white sputum (+) mild wheeze BL reports history of smoking CXR ordered stat nebs ordered (6) GERD (gastroesophageal reflux disease): Plan: Continue PPI (7) Bicuspid aortic valve: (8) Aortic stenosis: (9) Ascending aorta dilatation: Plan: Per outpatient review: 04/23/2024 Echo: EF: 60-64%. LV wall thickness is mildly increased. Aortic valve is possibly bicuspid with partial fusion of the right and non coronary aortic valve cusp. The aortic valve is moderately calcified. Moderate aortic valve stenosis is present. Trace aortic regurgitation is present. The aortic root is borderline enlarged, 3.9 cm. The ascending aorta is moderately enlarged, 4.5 cm. 05/19/24 CTA Chest: Bicuspid aortic valve with moderate annular calcification.Ectasia of ascending aorta measuring up to 4.2 cm. Following with G cardiology #DVT Prophylaxis SCDs Disposition per primary service Follows with Dr Younger for routine care Thank you for this consultation. We will follow the patient with you during their hospital stay. You can reach a member of the [facility] 08/10 via [employer] Admission and Anticipated Discharge Date Admission Date: June 17, 2024 Subjective ff up for s/p back surgery, etc seen resting in bed, comfortable states he feels ok overall having some back pain- relieved by pain meds felt somewhat lightheaded after ambulating today in the hallways no chest pain, shortness of breath (+) cough with white sputum reports chronic post nasal drip no other symptoms Review of Systems Review of Systems: all noted and negative except for above Physical Exam Physical Exam: General- oriented x 3, not in distress, speaks in sentences with no effort or accessory muscle use Eyes- anicteric Neck- no JVD Lungs- (+) mild scattered faint wheeze/rhonchi BL Heart- normal rate, regular rhythm; no murmurs Abdomen- normal bowel sounds, nondistended, soft, nontender Extremities- no pretibial edema, no calf tenderness Neuro- alert, oriented x 3; no gross focal neurologic deficits Skin- warm & dry Results & Data Results & Data Vital Signs (Past 12 Hours) Vital Signs Temp Pulse Resp BP Pulse Ox O2 Del Method 06/18/24 12:53 70 18 95 Room Air 06/18/24 10:57 36.7 C 74 18 136/88 98 Room Air 06/18/24 07:51 Room Air 06/18/24 07:22 36.7 C 70 16 143/87 H 97 Room Air 06/18/24 02:54 36.7 C 69 18 111/61 96 Room Air all noted and reviewed including below
--- NOTE | 2024-06-18 13:51 | XRay Report ---
XR chest 1V portable CLINICAL HISTORY: cough, wheezing, r/o pneumonia COMPARISON STUDY: 04/09/2024 FINDINGS: Single view portable chest is unchanged demonstrating no acute cardiopulmonary process. The re is no infiltrate or pleural effusion. No pneumothorax or atelectasis. The heart and pulmonary vasc ularity are unremarkable. IMPRESSION: Stable exam; no acute process ACT 112: Negative or not required by law. Electronically signed by: Nu Calvillo M.D. 06/18/2024 1:49 PM
[2024-06-18] MEDS ORDERED: IPRATROPIUM BROMIDE NEB SOLN 0.02% 0.5MG/2.5ML VIAL NEB SCH (19:00)
[2024-06-18] MEDS: LEVALBUTEROL 1.25 MG/3 ML NEB NEB SCH (20:17)
[2024-06-18] MEDS: IPRATROPIUM BROMIDE NEB SOLN 0.02% 0.5MG/2.5ML VIAL NEB SCH (20:17)
[2024-06-19 07:46] VITALS: RESP 16
--- NOTE | 2024-06-19 09:43 | Orthopedic Progress Note ---
Date of Service June 19, 2024 Assessment & Plan (1) Multilevel lumbosacral spondylosis with radiculopathy: Plan: At this time continue physical therapy monitor SERGIO output anticipate discharge home tomorrow. Admission and Anticipated Discharge Date Admission Date: June 17, 2024 Subjective Patient's back pain is controlled leg symptoms markedly improved. He is ambulating well. Physical Exam Physical Exam: Patient is currently in bed. Scheduling to testing. Is comfortable. SERGIO drain is functioning. Results & Data Vital Signs (Past 12 Hours) Vital Signs Temp Pulse Resp BP Pulse Ox O2 Del Method 06/19/24 07:43 36.7 C 76 16 130/83 96 Room Air 06/19/24 07:26 68 17 98 Room Air
[2024-06-19] MEDS: guaiFENesin 600 MG TABCR PO SCH (12:49)
--- NOTE | 2024-06-19 17:50 | Hospitalist Progress Note ---
Date of Service June 19, 2024 Assessment & Plan (1) S/P spinal surgery: (2) Multilevel lumbosacral spondylosis with radiculopathy: Plan: per previous hospitalist notes with addendum: Post op day# 0 S/P L3-L5 decompression and fusion by Dr Beth BREEN#[phone] Pain management per ortho Wound management per ortho PT/OT as appropriate DVT prophylaxis per ortho Incentive spirometry Monitor H&H for acute blood loss anemia; pre-op Hgb: 14 4/3 Hg 14 --> 12 monitor (3) Hypertension: Plan: Continue atenolol, diltiazem Hold lisinopril, HCTZ and reassess tomorrow 06/18 hold Lisinopril/HCTZ for now to prevent hypotension, dizziness monitor closely (4) HLD (hyperlipidemia): Plan: Continue home atorvastatin (5) COPD (chronic obstructive pulmonary disease): Plan: No signs exacerbation Levalbuterol as needed (+) productive cough with white sputum (+) mild wheeze BL reports history of smoking CXR ordered stat nebs ordered (6) GERD (gastroesophageal reflux disease): Plan: Continue PPI (7) Bicuspid aortic valve: (8) Aortic stenosis: (9) Ascending aorta dilatation: Plan: Per outpatient review: 04/23/2024 Echo: EF: 60-64%. LV wall thickness is mildly increased. Aortic valve is possibly bicuspid with partial fusion of the right and non coronary aortic valve cusp. The aortic valve is moderately calcified. Moderate aortic valve stenosis is present. Trace aortic regurgitation is present. The aortic root is borderline enlarged, 3.9 cm. The ascending aorta is moderately enlarged, 4.5 cm. 05/19/24 CTA Chest: Bicuspid aortic valve with moderate annular calcification.Ectasia of ascending aorta measuring up to 4.2 cm. Following with G cardiology #DVT Prophylaxis SCDs Disposition per primary service Follows with Dr Younger for routine care Thank you for this consultation. We will follow the patient with you during their hospital stay. You can [facility] a [facility] via [employer] Admission and Anticipated Discharge Date Admission Date: June 17, 2024 Results & Data Results & Data Vital Signs (Past 12 Hours) Vital Signs Temp Pulse Resp BP Pulse Ox O2 Del Method 06/19/24 14:51 36.6 C 69 16 120/77 94 Room Air 06/19/24 13:39 76 16 95 Room Air 06/19/24 07:43 36.7 C 76 16 130/83 96 Room Air 06/19/24 07:26 68 17 98 Room Air
[2024-06-20 07:15] VITALS: PULSE 70; O2SAT 98
[2024-06-20 07:56] VITALS: BP 139/84; TEMP 97.5
--- NOTE | 2024-06-20 08:53 | Discharge Summary ---
Date of Service June 20, 2024 Admission HPI Per Admitting Provider This is a 68-year-old male presents with chronic persistent back and leg pain after failing course of nonoperative care is here for surgical invention. Admission Exam (Per Admitting) Constitutional WD/WN, vitals as above Eyes normal visual townsend by confrontation ENMT external ear and nose normal, oropharynx normal Neck normal visual inspection Respiratory normal respiratory effort Cardiovascular Extremities: normal capillary refill Gastrointestinal (Abdomen) Inspection/Auscultation: abdomen normal to inspection Musculoskeletal no cyanosis or clubbing, extremities motor strength 5/5 Spine: + limited thoraco-lumbar ROM and + pain with thoraco-lumbar ROM Extremities: extremities normal to inspection and strength 5/5 throughout Gait: normal gait Skin no rashes, warm and dry Neurologic normal touch/pain/proprioception and moves all extremities Psychiatric A+Ox3, euthymic affect Eye Contact: good eye contact Discharge Data Consultations 06/17/24 13:33 Consult Hospitalist Routine Procedures Performed Operation Date: 06/17/24 09:05 Actual Procedures p L3-L5 Decompression and Fusion, Spinal Cord Monitoring(Not Applicable) - Jaylan Campos DO Hospital Course (1) Multilevel lumbosacral spondylosis with radiculopathy: Patient is being discharged home on postoperative day 3 status post L3-5 decompression and fusion. He has had an uneventful hospital course. Lab values are stable. He has had a bowel movement. He is making daily progress in physical therapy. Pain is controlled. Discharge Instructions ACTIVITY RECOMMENDATIONS: SELF CARE INSTRUCTIONS AFTER THORACIC/LUMBAR FUSIONS 1. You may walk to your tolerance. It is good exercise for your legs and back. Expect some back and intermittent leg aches and pains. 2. You may perform "counter-top" level activities (make a sandwich, carmelo with a project, etc.). 3. No bending or lifting of more than 10 pounds or back twisting of any nature (roll like a log when turning in bed). 4. You may ride in a car for 20-30 minutes at a time. No driving until after your first visit with your doctor. 5. Frequent changes of position and restricting sitting to 30 minutes at a time will help limit the amount of back spasms and stiffness you may experience. 6. You may discontinue the use of ambulatory aids (cane, crutches, etc.) once your strength and confidence allow. 7. You may pipeline technician the shower and let water strike your incision when you arrive home at least once daily. Do not take a tub bath, sit in a hot tub or go into a swimming pool until after your first recheck in the office. 8. You may resume previous diet. SPECIAL CARE INSTRUCTIONS: VERY IMPORTANT TO READ AND REVIEW A. Your surgical incision has been closed with a cosmetic suture under the skin that will dissolve in about 6 weeks. In 14 days, you can use a pair of clean scissors and cut the suture that is left outside of the skin at the ends of your incision. 1. The small skin tapes can be removed 7 days after surgery if they have not fallen off by that point. 2. You may keep the wound open to air as much as possible to promote healing after post-op day number 5 unless told otherwise by your doctor. 3. If you think the wound looks like it is becoming infected (redness or worsening drainage) and/or you are experiencing fever, chill or worsening back pain and muscle spasms, contact the office so that we may evaluate you as soon as possible. B. Complications are uncommon, but please contact us if you have any signs or symptoms of: 1. wound infection (fever higher than 102.5 degrees F, redness, separation of wound, drainage, or increasing pain from the incision) 2. blood clots in legs (pain, swelling, redness and warmth in legs) 3. urinary tract infection (fever higher than 102.5 degrees F, burning upon urination or increased frequency of urination) 4. nerve problems (inability to walk on your toes or heels, numbness, loss of bowel or bladder control) 5. any other symptoms that concern you C. Please call the office at if you have any concerns or questions about your operation or recovery. D. No smoking! Smoking drastically decreases the chance of a solid fusion. E. Do not take any anti-inflammatory medications (Indocin, Advil, Motrin, Aspirin, Naprosyn, etc.) as these may inhibit the chance of a solid fusion. Tylenol is okay to take for pain. MANAGING PAIN AFTER SPINAL SURGERY 1. Narcotic medication is intended for short-term use and will be provided for surgical pain. Surgical pain usually lasts for a period of 4-6 weeks. Narcotic medication includes Percocet, Vicodin, Darvocet, Tylenol #3 or Lortab. 2. Longer-term pain is more appropriately treated with non-narcotic medication such as Tylenol ES. 3. Muscle spasm is not appropriately treated with narcotics. Muscle relaxers such as Soma, Flexeril or Skelaxin can be used along with Tylenol ES. 4. Remember that we all live with some "aches and pains". This is not unusual or uncommon after an injury or as we get older. a. Back pain is expected and may include muscle spasms for 4 to 6 weeks after surgery. The pain should gradually improve. If the pain worsens for no apparent reason, please contact the office. b. Intermittent leg pain may also be experienced and should not be concerned about unless it worsens for no apparent reason. If so, please contact the office. 5. We will provide appropriate medication within the normal guidelines of their prescribed use. We will also be very cautious and aware of potential abuse and extended duration of patients' medication needs. a. Pain medications are for your comfort and to assist with sleep and rest so that the tissue can heal. They are not provided in order to return to normal activity and should not be used through the day. To do so or worsening pain at night can result from ongoing tissue damage and development of tolerance to the prescribed medicine. 6. Please allow 2-3 days to process refills. Prescriptions will not be mailed but must be picked up at the office. FOLLOW UP VISIT: Keep your scheduled follow-up appointment. Any questions, please call the office at .
== END 2024-06-20 10:12 | disposition home or self-care (01) | DRG 427 ==
LOC: ASU 07:41 → PACUINP 11:57 → 3W 14:11